=== PATIENT | female | born 1935 | race Caucasian/White ===

== ENCOUNTER → 2016-08-15 | Day surgery (SDC) | payer MEDICARE, BC, OTHER ==
[~2016-08-15] VITALS: Ht 157.5 cm; Wt 69.9 kg
[~2016-08-15] MED LIST: ACETAMINOPHEN 325 MG TAB PO PRN; ASPI1TAB PO; ATEN25TA PO; AcetaZOLAMIDE 500 MG ER CAP PO ONE; BREO1INH3 INH; BSS with VANC/TOB/EPI for EYE CASES IR ONE; CEFUROXIME 1MG/0.1ML INTRACAMERAL INJ As Ordered ONE; COMBAER6 INH; CYCLOPENTOLATE 2% OPHTH SOLN As Ordered ONE; CYCLOPENTOLATE 2% OPHTH SOLN OS ONE; HEALON DUET (HEALON 10MG/ML 0.55ML & HEALON ENDOCOAT 30MG/ML 0.85ML) As Ordered ONE; HYDR25TAB PO; K-TA10TA PO; KETOROLAC 0.5% OPHTH SOLN OS ONE; LIDOCAINE 1% SDV 5 ML VIAL As Ordered ONE; LIDOCAINE 4% INJ 5 ML AMP OU ONE; LIPI10TA PO; MAGN400C2 PO; MAVI4TAB PO; MECL-86 PO; METF500T PO; MIDAZOLAM INJ 2 MG/2 ML VIAL (J2250) As Ordered ONE; MULT1TAB15 PO; NITR4TASL SL; OFLOXACIN 0.3 % (OCUFLOX) OPTH SOL 5ML As Ordered ONE; OFLOXACIN 0.3 % (OCUFLOX) OPTH SOL 5ML OS ONE; PHENYLEPHRINE 2.5% OPHTH SOL 2ML As Ordered ONE; PHENYLEPHRINE 2.5% OPHTH SOL 2ML OS ONE; POVIDONE-IODINE 5% OPHTH PREP SOL 30ML As Ordered ONE; PRIL20CA9 PO; PROPARACAINE 0.5% OPHTH SOL 15ML OS PRN; SPIR25TA2 PO; TRIMETHOBENZAMIDE 300 MG CAP PO PRN; TROPICAMIDE 1% OPHTH SOLN 2 ML As Ordered ONE; TROPICAMIDE 1% OPHTH SOLN 2 ML OS ONE; fentaNYL 100 MCG/2 ML INJECTION (J3010) As Ordered ONE
[2016-08-15 10:00] VITALS: BP 139/74
== END | disposition home or self-care (01) ==
LOC: M SDC 07:15
PROVIDERS: ATTEND Ophthalmology
DX: H26.9 Unspecified cataract (principal); I25.10 Atherosclerotic heart disease of native coronary artery without angina pectoris; I25.2 Old myocardial infarction; I11.9 Hypertensive heart disease without heart failure; E78.4 Other hyperlipidemia; E11.21 Type 2 diabetes mellitus with diabetic nephropathy; E11.40 Type 2 diabetes mellitus with diabetic neuropathy, unspecified; K21.9 Gastro-esophageal reflux disease without esophagitis; R29.898 Other symptoms and signs involving the musculoskeletal system; M12.9 Arthropathy, unspecified; M54.5 Low back pain; R51 Headache; J44.9 Chronic obstructive pulmonary disease, unspecified; R06.02 Shortness of breath; R32 Unspecified urinary incontinence; Z88.5 Allergy status to narcotic agent; Z88.8 Allergy status to other drugs, medicaments and biological substances; Z79.899 Other long term (current) drug therapy; Z79.82 Long term (current) use of aspirin; Z95.0 Presence of cardiac pacemaker; Z95.5 Presence of coronary angioplasty implant and graft; Z90.710 Acquired absence of both cervix and uterus; Z87.891 Personal history of nicotine dependence
CPT/HCPCS: 66984; J2250; J3010; V2632

== ENCOUNTER → 2016-09-13 | Day surgery (SDC) | payer MEDICARE, BC, OTHER ==
[~2016-09-13] VITALS: Ht 157.5 cm; Wt 69.9 kg
[~2016-09-13] MED LIST changes: -CYCLOPENTOLATE 2% OPHTH SOLN As Ordered ONE; +CYCLOPENTOLATE 2% OPHTH SOLN OD ONE; -CYCLOPENTOLATE 2% OPHTH SOLN OS ONE; +KETOROLAC 0.5% OPHTH SOLN OD ONE; -KETOROLAC 0.5% OPHTH SOLN OS ONE; +MOXIFLOXACIN IN BSS 0.25MG/0.25ML INTRACAMERAL INJ (OR EYE ONLY)(J2280) As Ordered ONE; -OFLOXACIN 0.3 % (OCUFLOX) OPTH SOL 5ML As Ordered ONE; +OFLOXACIN 0.3 % (OCUFLOX) OPTH SOL 5ML OD ONE; -OFLOXACIN 0.3 % (OCUFLOX) OPTH SOL 5ML OS ONE; -PHENYLEPHRINE 2.5% OPHTH SOL 2ML As Ordered ONE; +PHENYLEPHRINE 2.5% OPHTH SOL 2ML OD ONE; -PHENYLEPHRINE 2.5% OPHTH SOL 2ML OS ONE; +PROPARACAINE 0.5% OPHTH SOL 15ML OD PRN; -PROPARACAINE 0.5% OPHTH SOL 15ML OS PRN; +TRIAMCINOLONE PRES FR 40 MG/ML 1ML(TRIESENCE)(OR EYE ONLY)(J3300 PER 1MG) As Ordered ONE; -TROPICAMIDE 1% OPHTH SOLN 2 ML As Ordered ONE; +TROPICAMIDE 1% OPHTH SOLN 2 ML OD ONE; -TROPICAMIDE 1% OPHTH SOLN 2 ML OS ONE
[2016-09-13 11:50] VITALS: BP 132/71
--- NOTE | 2016-09-13 12:41 | RO ---
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 PROCEDURE: Phacoemulsification with intraocular lens implantation of PCB00 plus 21.5 and also placement of the Malyugin ring 7 mm. SURGEON: Ventura Lopez MD ORDER CONTROL CLERK BLOOD BANK: None. COMPLICATIONS: None. ANESTHESIA: Local monitored anesthesia care (MAC). DESCRIPTION OF PROCEDURE: Procedure in detail: Patient was brought to the operating room, laid in supine position. The eye was prepped and draped in a sterile fashion for ophthalmic surgery, and a sideport incision was made and 1% preservative-free lidocaine was injected through the clear cornea. Viscoat was then injected through the sideport, and anterior chamber was entered with a 2.5 mm keratome temporally through clear cornea. A circular capsulorrhexis was made after the initial placement of the Malyugin ring to dilate the pupil. The nucleus was hydrodissected and then phacoemulsified within the capsular bag, and the cortex was removed with irrigation and aspiration cannula. The Viscoat was then injected into the capsular bag and the intraocular lens inserted in the bag. Viscoelastic was then removed. All the wounds were tested for leaks. No leaks were noted after the intraocular lens was in the bag. Moxifloxacin was then injected intracamerally, and Kenalog was given in the sub-Tenon fascia. Lid speculum was removed. Patient returned to the recovery room in stable condition after the Malyugin ring was removed. Edited: [facility] 09/15/2016 [id number]
== END | disposition home or self-care (01) ==
LOC: M SDC 09:00
PROVIDERS: ATTEND Ophthalmology
DX: H26.9 Unspecified cataract (principal); H57.03 Miosis; I11.9 Hypertensive heart disease without heart failure; J44.9 Chronic obstructive pulmonary disease, unspecified; I25.10 Atherosclerotic heart disease of native coronary artery without angina pectoris; E11.21 Type 2 diabetes mellitus with diabetic nephropathy; E11.40 Type 2 diabetes mellitus with diabetic neuropathy, unspecified; E78.4 Other hyperlipidemia; J98.01 Acute bronchospasm; I25.2 Old myocardial infarction; K21.9 Gastro-esophageal reflux disease without esophagitis; R29.898 Other symptoms and signs involving the musculoskeletal system; M12.9 Arthropathy, unspecified; R06.09 Other forms of dyspnea; R32 Unspecified urinary incontinence; R51 Headache; K57.30 Diverticulosis of large intestine without perforation or abscess without bleeding; Z88.5 Allergy status to narcotic agent; Z88.8 Allergy status to other drugs, medicaments and biological substances; Z79.899 Other long term (current) drug therapy; Z79.82 Long term (current) use of aspirin; Z95.5 Presence of coronary angioplasty implant and graft; Z95.0 Presence of cardiac pacemaker; Z90.710 Acquired absence of both cervix and uterus; Z87.891 Personal history of nicotine dependence
CPT/HCPCS: 66982; J2250; J2280; J3010; J3300; V2632

== ENCOUNTER → 2018-02-21 | Outpatient (REF) | payer MEDICARE, BC, OTHER ==
[2018-02-21 18:58] LABS: BASO % 0.4 % (0.0-1.0); EOS # 0.1 10^3/uL (0.0-0.50); EOS % 1.7 % (0.0-3.0); HEMATOCRIT 39.4 % (36.0-47.0); HEMOGLOBIN 12.8 g/dl (12.0-15.5); IMMATURE GRANULOCYTE % 0.2 % (0-3.0); LYMPH # 1.7 10^3/uL (1.5-4.5); LYMPH % 32.3 % (24.0-44.0); MEAN CORPUSCULAR HEMOGLOBIN 30.3 pg (27.0-33.0); MEAN CORPUSCULAR HGB CONC 32.5 g/dl (32.0-36.5); MEAN CORPUSCULAR VOLUME 93.1 fl (80.0-96.0); MONO # 0.5 10^3/uL (0.0-0.8); MONO % 8.4 % (0.0-5.0); NEUTROPHILS # 3.1 10^3/uL (1.8-7.7); PLATELET COUNT, AUTOMATED 258 10^3/uL (150-450); RED BLOOD COUNT 4.23 10^6/uL (4.00-5.40); RED CELL DISTRIBUTION WIDTH 13.3 % (11.5-14.5); WHITE BLOOD COUNT 5.4 10^3/uL (4.0-10.0)
[2018-02-21 19:22] LABS: ANION GAP 11 MEQ/L (8-16); BLOOD UREA NITROGEN 24 MG/DL (7-18); C REACTIVE PROTEIN QUANTITATIV < 0.30 MG/DL (0.00-0.30); CALCIUM LEVEL 10.4 MG/DL (8.8-10.2); CARBON DIOXIDE LEVEL 25 MEQ/L (21-32); CHLORIDE LEVEL 103 MEQ/L (98-107); CREATININE FOR GFR 1.29 MG/DL (0.55-1.30); GLOMERULAR FILTRATION RATE 42.2 (>32); GLUCOSE, FASTING 126 MG/DL (70-100); MAGNESIUM LEVEL 1.9 MG/DL (1.8-2.4); POTASSIUM SERUM 4.5 MEQ/L (3.5-5.1); SODIUM LEVEL 139 MEQ/L (136-145); THYROID STIMULATING HORMONE 0.863 uIU/ML (0.358-3.740)
[2018-02-21 20:00] LABS: ERYTHROCYTE SEDIMENTATION RATE 2 mm/hr (0-30)
[2018-02-21 21:07] LABS: ESTIMATED AVERAGE GLUCOSE 177 MG/DL (60-110); HEMOGLOBIN A1c 7.8 %
== END ==
LOC: M LAB REF 17:22
DX: R52 Pain, unspecified (principal); E11.65 Type 2 diabetes mellitus with hyperglycemia; I11.9 Hypertensive heart disease without heart failure; F32.0 Major depressive disorder, single episode, mild; M79.1 Myalgia; R06.00 Dyspnea, unspecified
CPT/HCPCS: 83735

== ENCOUNTER → 2020-07-10 | Outpatient (REF) | payer MEDICARE, OTHER ==
[~2020-07-10] MED LIST changes: -ACETAMINOPHEN 325 MG TAB PO PRN; -ASPI1TAB PO; +ASPI81TA26 PO; -AcetaZOLAMIDE 500 MG ER CAP PO ONE; -BSS with VANC/TOB/EPI for EYE CASES IR ONE; -CEFUROXIME 1MG/0.1ML INTRACAMERAL INJ As Ordered ONE; -CYCLOPENTOLATE 2% OPHTH SOLN OD ONE; -HEALON DUET (HEALON 10MG/ML 0.55ML & HEALON ENDOCOAT 30MG/ML 0.85ML) As Ordered ONE; +HYDR-3490 PO; -HYDR25TAB PO; -KETOROLAC 0.5% OPHTH SOLN OD ONE; -LIDOCAINE 1% SDV 5 ML VIAL As Ordered ONE; -LIDOCAINE 4% INJ 5 ML AMP OU ONE; -METF500T PO; +METF500T13 PO; -MIDAZOLAM INJ 2 MG/2 ML VIAL (J2250) As Ordered ONE; -MOXIFLOXACIN IN BSS 0.25MG/0.25ML INTRACAMERAL INJ (OR EYE ONLY)(J2280) As Ordered ONE; -OFLOXACIN 0.3 % (OCUFLOX) OPTH SOL 5ML OD ONE; -PHENYLEPHRINE 2.5% OPHTH SOL 2ML OD ONE; -POVIDONE-IODINE 5% OPHTH PREP SOL 30ML As Ordered ONE; -PROPARACAINE 0.5% OPHTH SOL 15ML OD PRN; +SPIR-10 PO; -SPIR25TA2 PO; -TRIAMCINOLONE PRES FR 40 MG/ML 1ML(TRIESENCE)(OR EYE ONLY)(J3300 PER 1MG) As Ordered ONE; -TRIMETHOBENZAMIDE 300 MG CAP PO PRN; -TROPICAMIDE 1% OPHTH SOLN 2 ML OD ONE; -fentaNYL 100 MCG/2 ML INJECTION (J3010) As Ordered ONE
[2020-07-10 15:55] LABS: BASO # 0.1 10^3/uL (0.0-0.2); BASO % 0.7 % (0.0-1.0); EOS # 0.1 10^3/uL (0.0-0.5); HEMATOCRIT 41.8 % (36.0-47.0); HEMOGLOBIN 13.5 g/dl (12.0-15.5); LYMPH % 28.5 % (24.0-44.0); MEAN CORPUSCULAR HEMOGLOBIN 30.9 pg (27.0-33.0); MEAN CORPUSCULAR HGB CONC 32.3 g/dl (32.0-36.5); MEAN CORPUSCULAR VOLUME 95.7 fl (80.0-96.0); MONO # 0.6 10^3/uL (0.0-0.8); NEUTROPHILS # 4.2 10^3/uL (1.5-8.5); NEUTROPHILS % 60.5 % (36.0-66.0); PLATELET COUNT, AUTOMATED 253 10^3/uL (150-450); RED BLOOD COUNT 4.37 10^6/uL (4.00-5.40)
[2020-07-10 16:03] LABS: ALBUMIN 4.2 GM/DL (3.2-5.2); BILIRUBIN,TOTAL 1.4 MG/DL (0.2-1.0); CALCIUM LEVEL 10.4 MG/DL (8.8-10.2); CREATININE FOR GFR 1.65 MG/DL (0.55-1.30); GLOMERULAR FILTRATION RATE 31.6 (>32); TOTAL PROTEIN 7.7 GM/DL (6.4-8.2)
== END ==
LOC: M LABDRAWC 15:29
PROVIDERS: ATTEND Internal Medicine Cardiovascular Disease
DX: I50.32 Chronic diastolic (congestive) heart failure (principal); I08.0 Rheumatic disorders of both mitral and aortic valves

== ENCOUNTER → 2020-07-21 | Outpatient (REF) | payer MEDICARE, OTHER ==
[2020-07-21 17:41] LABS: BASO # 0.1 10^3/uL (0.0-0.2); BASO % 0.6 % (0.0-1.0); EOS # 0.2 10^3/uL (0.0-0.5); EOS % 2.2 % (0.0-3.0); HEMATOCRIT 43.2 % (36.0-47.0); HEMOGLOBIN 13.9 g/dl (12.0-15.5); LYMPH % 24.5 % (24.0-44.0); MEAN CORPUSCULAR HEMOGLOBIN 31.2 pg (27.0-33.0); MEAN CORPUSCULAR HGB CONC 32.2 g/dl (32.0-36.5); MEAN CORPUSCULAR VOLUME 96.9 fl (80.0-96.0); MONO # 0.6 10^3/uL (0.0-0.8); MONO % 6.8 % (2.0-8.0); NEUTROPHILS # 5.4 10^3/uL (1.5-8.5); NEUTROPHILS % 65.5 % (36.0-66.0); PLATELET COUNT, AUTOMATED 272 10^3/uL (150-450); RED BLOOD COUNT 4.46 10^6/uL (4.00-5.40); WHITE BLOOD COUNT 8.2 10^3/uL (4.0-10.0)
[2020-07-21 18:14] LABS: HEMOGLOBIN A1c 6.5 %
[2020-07-21 18:17] LABS: C REACTIVE PROTEIN QUANTITATIV 0.3 MG/DL (0.00-0.30); CALCIUM LEVEL 10.4 MG/DL (8.8-10.2); CREATININE FOR GFR 1.51 MG/DL (0.55-1.30); POTASSIUM SERUM 4.9 MEQ/L (3.5-5.1); THYROID STIMULATING HORMONE 1.05 uIU/ML (0.358-3.740)
== END ==
LOC: M LABDRAWC 16:05
PROVIDERS: ATTEND Family Medicine
DX: I50.32 Chronic diastolic (congestive) heart failure (principal); J44.9 Chronic obstructive pulmonary disease, unspecified; E11.9 Type 2 diabetes mellitus without complications; I11.0 Hypertensive heart disease with heart failure; R53.81 Other malaise; R53.83 Other fatigue; M79.609 Pain in unspecified limb; N19 Unspecified kidney failure

== ENCOUNTER → 2020-07-21 | Outpatient (REF) | payer MEDICARE, OTHER ==
[2020-07-21 18:13] LABS: ALBUMIN 4.3 GM/DL (3.2-5.2); CALCIUM LEVEL 10.4 MG/DL (8.8-10.2); CREATININE FOR GFR 1.52 MG/DL (0.55-1.30); GLOMERULAR FILTRATION RATE 34.8 (>32); PHOSPHORUS LEVEL 3.5 MG/DL (2.5-4.9); POTASSIUM SERUM 4.7 MEQ/L (3.5-5.1)
== END ==
LOC: M LABDRAWC 16:03
PROVIDERS: ATTEND Internal Medicine Cardiovascular Disease
DX: I50.32 Chronic diastolic (congestive) heart failure (principal); N19 Unspecified kidney failure

== ENCOUNTER → 2021-02-10 | Outpatient (REF) | payer MEDICARE, OTHER | LOC: M SFHCCLAY 10:01 | PROVIDERS: ATTEND Physician Assistant | DX: R30.0 Dysuria (principal); N39.0 Urinary tract infection, site not specified; R31.9 Hematuria, unspecified | CPT/HCPCS: 81002; 87088; 87186; G0463 ==

== ENCOUNTER → 2021-02-24 | Outpatient (CLI) | payer MEDICARE, BC, OTHER | LOC: M LABSMTC 11:26 | PROVIDERS: ATTEND Pediatrics | DX: Z11.52 Encounter for screening for COVID-19 (principal); U07.1 COVID-19 | CPT/HCPCS: C9803; U0003 ==

== ENCOUNTER → 2021-03-18 | Outpatient (REF) | payer MEDICARE, OTHER ==
[2021-03-18 16:24] LABS: HEMATOCRIT 38.1 % (36.0-47.0); HEMOGLOBIN 12.2 g/dl (12.0-15.5); MEAN CORPUSCULAR HEMOGLOBIN 30.9 pg (27.0-33.0); MEAN CORPUSCULAR VOLUME 96.5 fl (80.0-96.0); PLATELET COUNT, AUTOMATED 270 10^3/uL (150-450); RED BLOOD COUNT 3.95 10^6/uL (4.00-5.40); WHITE BLOOD COUNT 7.1 10^3/uL (4.0-10.0)
[2021-03-18 16:54] LABS: BILIRUBIN,TOTAL 0.9 MG/DL (0.2-1.0); CALCIUM LEVEL 10.1 MG/DL (8.8-10.2); CREATININE FOR GFR 1.28 MG/DL (0.55-1.30); GLOMERULAR FILTRATION RATE 42.3 (>32)
[2021-03-18 16:55] LABS: ALBUMIN 3.6 GM/DL (3.2-5.2); CHOLESTEROL RISK RATIO 3.974 (<5); TOTAL PROTEIN 7.2 GM/DL (6.4-8.2)
[2021-03-18 19:45] LABS: HEMOGLOBIN A1c 6.7 %
== END ==
LOC: M SFHCCLAY 09:39
PROVIDERS: ATTEND Family Medicine
DX: I50.32 Chronic diastolic (congestive) heart failure (principal); E11.9 Type 2 diabetes mellitus without complications

== ENCOUNTER → 2021-08-05 | Outpatient (REF) | payer MEDICARE, OTHER ==
[2021-08-06 12:19] LABS: CALCIUM LEVEL 10.5 MG/DL (8.8-10.2); CREATININE FOR GFR 1.63 MG/DL (0.55-1.30); POTASSIUM SERUM 5.8 MEQ/L (3.5-5.1)
[2021-08-06 12:24] LABS: MALB URINE SIEMENS 16.4 MG/L; MAU/CREAT RATIO 9.6 MCG/MG (0.0-30.0)
[2021-08-06 12:31] LABS: HEMOGLOBIN A1c 6.9 %
== END ==
LOC: M SFHCCLAY 14:14
PROVIDERS: ATTEND Family Medicine
DX: N18.32 Chronic kidney disease, stage 3b (principal); E11.9 Type 2 diabetes mellitus without complications

== ENCOUNTER → 2021-08-11 | Outpatient (REF) | payer MEDICARE, OTHER | LOC: M SFHCCLAY 09:20 | PROVIDERS: ATTEND Family Medicine | DX: E87.5 Hyperkalemia (principal) ==

== ENCOUNTER → 2021-12-06 | Outpatient (REF) | payer MEDICARE, OTHER ==
[2021-12-06 16:47] LABS: HEMATOCRIT 41.6 % (36.0-47.0); HEMOGLOBIN 13.5 g/dl (12.0-15.5); MEAN CORPUSCULAR HGB CONC 32.5 g/dl (32.0-36.5); MEAN CORPUSCULAR VOLUME 98.6 fl (80.0-96.0); PLATELET COUNT, AUTOMATED 218 10^3/uL (150-450); RED BLOOD COUNT 4.22 10^6/uL (4.00-5.40); WHITE BLOOD COUNT 6.5 10^3/uL (4.0-10.0)
[2021-12-07 00:09] LABS: CALCIUM LEVEL 10.5 MG/DL (8.8-10.2); CREATININE FOR GFR 1.41 MG/DL (0.55-1.30); FREE T4 0.9 NG/DL (0.76-1.46); GLOMERULAR FILTRATION RATE 37.7 (>32); POTASSIUM SERUM 5.1 MEQ/L (3.5-5.1); THYROID STIMULATING HORMONE 0.977 uIU/ML (0.358-3.740)
[2021-12-07 01:12] LABS: HEMOGLOBIN A1c 6.6 %
== END ==
LOC: M SFHCCLAY 10:23
PROVIDERS: ATTEND Family Medicine
DX: R53.82 Chronic fatigue, unspecified (principal); E11.9 Type 2 diabetes mellitus without complications

== ENCOUNTER → 2022-05-25 | Outpatient (REF) | payer MEDICARE, OTHER | LOC: M SFHCCLAY 11:51 | PROVIDERS: ATTEND Family Medicine | DX: R35.0 Frequency of micturition (principal) ==

== ENCOUNTER → 2022-08-02 | Outpatient (REF) | payer MEDICARE, OTHER ==
[2022-08-02 18:23] LABS: CALCIUM LEVEL 9.9 MG/DL (8.3-10.6); CHOLESTEROL RISK RATIO 4.02 (<5); CREATININE FOR GFR 1.26 MG/DL (0.55-1.30); HDL CHOLESTEROL 41.7 MG/DL (>40); LDL CHOLESTEROL 46.9 MG/DL (<100); POTASSIUM SERUM 5.1 MMOL/L (3.5-5.1)
[2022-08-02 18:38] LABS: HEMOGLOBIN A1c 6.5 % (4.0-6.0)
== END ==
LOC: M SFHCCLAY 11:06
PROVIDERS: ATTEND Nurse Practitioner Family
DX: I11.0 Hypertensive heart disease with heart failure (principal); E11.9 Type 2 diabetes mellitus without complications; I50.32 Chronic diastolic (congestive) heart failure; I25.10 Atherosclerotic heart disease of native coronary artery without angina pectoris; N18.32 Chronic kidney disease, stage 3b; J44.9 Chronic obstructive pulmonary disease, unspecified; M25.561 Pain in right knee

== ENCOUNTER → 2022-08-05 | Outpatient (REF) | payer MEDICARE, OTHER | LOC: M SFHCCLAY 10:48 | PROVIDERS: ATTEND Nurse Practitioner Family | DX: N89.8 Other specified noninflammatory disorders of vagina (principal) ==

== ENCOUNTER → 2022-08-31 | Outpatient (REF) | payer MEDICARE, OTHER | LOC: M SFHCCLAY 16:58 | PROVIDERS: ATTEND Nurse Practitioner Family | DX: N89.8 Other specified noninflammatory disorders of vagina (principal); Z79.899 Other long term (current) drug therapy ==

== ENCOUNTER 2022-09-13 22:22 | Inpatient (IN) | payer MEDICARE, BC, OTHER ==
[~2022-09-13] VITALS: Ht 157.5 cm; Wt 71.5 kg
[~2022-09-13 22:22] MED LIST changes: -ACET-897 PO; -ADVA230A INH; -ALBU8.5H INH; -ARTIDRO4 OU; -ASPI-161 PO; -FLUC150T9 PO; -GLIM2TAB4 PO; -HYDR12.55 PO; -MAGN400T2 PO; -MECL25CH45 PO; -OMEP-173 PO; -TRAN1TAB56 PO; -TRIA1CR80 TOP; -VITMTA PO
[2022-09-13 23:13] LABS: BASO % 0.3 % (0.0-1.0); EOS # 0.1 10^3/uL (0.0-0.5); EOS % 1.8 % (0.0-3.0); HEMATOCRIT 38.9 % (36.0-47.0); HEMOGLOBIN 13.1 g/dl (12.0-15.5); LYMPH # 2.8 10^3/uL (1.5-5.0); MEAN CORPUSCULAR HEMOGLOBIN 32.6 pg (27.0-33.0); MEAN CORPUSCULAR HGB CONC 33.7 g/dl (32.0-36.5); MEAN CORPUSCULAR VOLUME 96.8 fl (80.0-96.0); MONO # 0.6 10^3/uL (0.0-0.8); MONO % 7.9 % (2.0-8.0); NEUTROPHILS # 4.2 10^3/uL (1.5-8.5); NEUTROPHILS % 53.6 % (36.0-66.0); PLATELET COUNT, AUTOMATED 274 10^3/uL (150-450); RED BLOOD COUNT 4.02 10^6/uL (4.00-5.40); WHITE BLOOD COUNT 7.7 10^3/uL (4.0-10.0)
[2022-09-13 23:39] LABS: RSV AMPLIFICATION NEGATIVE (NEGATIVE)
[2022-09-13 23:47] LABS: CALCIUM LEVEL 9.9 MG/DL (8.3-10.6); CREATININE FOR GFR 1.98 MG/DL (0.55-1.30); GLOMERULAR FILTRATION RATE 25.5 (>32); POTASSIUM SERUM 6.7 MMOL/L (3.5-5.1); THYROID STIMULATING HORMONE 2.834 uIU/ML (0.55-4.78)
[2022-09-14] VITALS (9 sets, daily range): BP systolic 112–127; BP diastolic 59–68; O2SAT 95–96
[2022-09-14] MEDS ORDERED: DEXTROSE 50% 50ML SYRINGE IV ONE
[2022-09-14] MEDS ORDERED: HumuLIN R (REGULAR) INSULIN (NovoLIN R) **100U/ML** PER UNIT IV ONE
[2022-09-14] MEDS ORDERED: CALCIUM GLUCONATE 1,000MG/10ML VIAL (100MG/ML) IV ONE
[2022-09-14] MEDS ORDERED: GLUCAGON INJ 1MG VIAL SC PRN (00:45)
[2022-09-14] MEDS ORDERED: NS 1,000 ML IV SCH (00:45)
[2022-09-14] MEDS ORDERED: GLUCOSE 4GM CHEW TABLET PO PRN (00:45)
[2022-09-14] MEDS ORDERED: DEXTROSE 50% 50ML SYRINGE IV PRN (00:45)
[2022-09-14] MEDS ORDERED: PATIROMER SORBITEX CALCIUM 8.4 GM POWDER PACKET (VELTASSA) PO ONE (01:00)
[2022-09-14 01:24] LABS: VENOUS HCO3 17.1 MEQ/L (23.0-27.0); VENOUS O2 SATURATION 69.9 % (60.0-80.0); VENOUS PARTIAL PRESSURE O2 41.7 mmHg (30.0-50.0); VENOUS PH 7.228 UNITS (7.330-7.430); VENOUS STANDARD HCO3 16.1 MEQ/L; VENOUS TOTAL CO2 18.4 MEQ/L (24.0-28.0)
[2022-09-14 01:43] LABS: HEMOGLOBIN A1c 6.5 % (4.0-6.0)
[2022-09-14 02:45] LABS: VENOUS BASE EXCESS -8.9 (-2.0-2.0); VENOUS HCO3 17.4 MEQ/L (23.0-27.0); VENOUS O2 SATURATION 70.7 % (60.0-80.0); VENOUS PARTIAL PRESSURE CO2 39.3 mmHg (38.0-50.0); VENOUS PARTIAL PRESSURE O2 40.1 mmHg (30.0-50.0); VENOUS PH 7.265 UNITS (7.330-7.430); VENOUS STANDARD HCO3 16.8 MEQ/L; VENOUS TOTAL CO2 18.6 MEQ/L (24.0-28.0)
[2022-09-14] MEDS: hydrALAZINE 20MG/ML 1ML VIAL IV ONE ×2 (02:49→05:25)
[2022-09-14] MEDS ORDERED: DEXTROSE 50% 50ML SYRINGE IV STA (03:48)
[2022-09-14] MEDS ORDERED: HumuLIN R (REGULAR) INSULIN (NovoLIN R) **100U/ML** PER UNIT IV STA (03:48)
[2022-09-14 03:50] LABS: CALCIUM LEVEL 10.5 MG/DL (8.3-10.6); CREATININE FOR GFR 1.96 MG/DL (0.55-1.30); GLOMERULAR FILTRATION RATE 25.8 (>32); POTASSIUM SERUM 6.9 MMOL/L (3.5-5.1)
[2022-09-14] MEDS: SODIUM BICARBONATE 150 MEQ in STERILE WATER LITER BAG 1,000 ML IV SCH ×2 (04:42→17:10)
[2022-09-14] MEDS ORDERED: ALBUTEROL SULFATE 2.5MG/0.5ML INH NEB SOLN NEB ONE (05:00)
[2022-09-14] MEDS ORDERED: SOD POLYSTYRENE SULFONATE SUSP 15GM 60ML UD PO ONE (05:00)
[2022-09-14] MEDS ORDERED: ONDANSETRON 4MG 2ML VIAL As Ordered ONE (05:07)
[2022-09-14] MEDS ORDERED: OMEP-173 PO (05:19)
[2022-09-14] MEDS ORDERED: MECL25CH45 PO (05:19)
[2022-09-14] MEDS ORDERED: VITMTA PO (05:19)
[2022-09-14] MEDS ORDERED: TRAN1TAB56 PO (05:19)
[2022-09-14] MEDS ORDERED: ARTIDRO4 OU (05:19)
[2022-09-14] MEDS ORDERED: HYDR12.55 PO (05:19)
[2022-09-14] MEDS ORDERED: TRIA1CR80 TOP (05:19)
[2022-09-14] MEDS ORDERED: ALBU8.5H INH (05:19)
[2022-09-14] MEDS ORDERED: ACET-897 PO (05:19)
[2022-09-14] MEDS ORDERED: MAGN400T2 PO (05:19)
[2022-09-14] MEDS ORDERED: FLUC150T9 PO (05:19)
[2022-09-14] MEDS ORDERED: ASPI-161 PO (05:19)
[2022-09-14] MEDS ORDERED: GLIM2TAB4 PO (05:19)
[2022-09-14] MEDS ORDERED: ADVA230A INH (05:19)
[2022-09-14] MEDS ORDERED: HOME MED LIST COMPLETE! XX SCH (05:20)
[2022-09-14] MEDS: HEPARIN SOD (PORCINE) 5000UNITS/ML 1ML VIAL/SYRINGE SC SCH ×3 (05:59→21:04)
[2022-09-14 06:44] LABS: VENOUS PARTIAL PRESSURE CO2 30.9 mmHg (38.0-50.0); VENOUS PH 7.318 UNITS (7.330-7.430); VENOUS TOTAL CO2 16.4 MEQ/L (24.0-28.0)
[2022-09-14 06:45] LABS: HEMATOCRIT 40.7 % (36.0-47.0); HEMOGLOBIN 13.3 g/dl (12.0-15.5); MEAN CORPUSCULAR HEMOGLOBIN 32.4 pg (27.0-33.0); MEAN CORPUSCULAR HGB CONC 32.7 g/dl (32.0-36.5); PLATELET COUNT, AUTOMATED 293 10^3/uL (150-450); RED BLOOD COUNT 4.11 10^6/uL (4.00-5.40); VENOUS BASE EXCESS -9.3 (-2.0-2.0); VENOUS HCO3 15.5 MEQ/L (23.0-27.0); VENOUS STANDARD HCO3 17.1 MEQ/L; WHITE BLOOD COUNT 10.7 10^3/uL (4.0-10.0)
[2022-09-14 07:08] LABS: CALCIUM LEVEL 10.8 MG/DL (8.3-10.6); CREATININE FOR GFR 1.95 MG/DL (0.55-1.30); POTASSIUM SERUM 5.9 MMOL/L (3.5-5.1)
[2022-09-14] MEDS: OMEPRAZOLE 20MG CAP PO SCH (08:42)
[2022-09-14] MEDS: ASPIRIN 81MG ENTERIC TABLET PO SCH (08:42)
[2022-09-14] MEDS: atenoloL 25 MG TAB PO SCH (08:42)
[2022-09-14] MEDS: ADVAIR HFA 230/21MCG INHALER INH SCH (09:53)
[2022-09-14 11:01] LABS: CALCIUM LEVEL 10.3 MG/DL (8.3-10.6); CREATININE FOR GFR 1.85 MG/DL (0.55-1.30); GLOMERULAR FILTRATION RATE 27.6 (>32); POTASSIUM SERUM 5.9 MMOL/L (3.5-5.1)
[2022-09-14] MEDS ORDERED: PATIROMER SORBITEX CALCIUM 8.4 GM POWDER PACKET (VELTASSA) PO SCH (12:20)
[2022-09-14] MEDS ORDERED: FLUCONAZOLE 50MG TABLET PO ONE (15:00)
[2022-09-14] MEDS: ACETAMINOPHEN TAB 650MG DOSE (2X325MG) PO PRN (19:38)
[2022-09-14] MEDS ORDERED: ATORVASTATIN 10 MG TAB PO SCH (21:00)
[2022-09-15] VITALS (13 sets, daily range): BP systolic 112–121; BP diastolic 56–64; O2SAT 91–99
[2022-09-15] MEDS: SODIUM BICARBONATE 150 MEQ in STERILE WATER LITER BAG 1,000 ML IV SCH (03:09)
[2022-09-15] MEDS: HEPARIN SOD (PORCINE) 5000UNITS/ML 1ML VIAL/SYRINGE SC SCH (05:18)
[2022-09-15] MEDS: ACETAMINOPHEN TAB 650MG DOSE (2X325MG) PO PRN (05:28)
[2022-09-15] MEDS: ADVAIR HFA 230/21MCG INHALER INH SCH (07:47)
[2022-09-15 08:31] LABS: BASO % 0.4 % (0.0-1.0); EOS # 0.1 10^3/uL (0.0-0.5); EOS % 1.5 % (0.0-3.0); HEMATOCRIT 32.8 % (36.0-47.0); LYMPH # 1.5 10^3/uL (1.5-5.0); LYMPH % 28.5 % (24.0-44.0); MEAN CORPUSCULAR HEMOGLOBIN 32.4 pg (27.0-33.0); MEAN CORPUSCULAR HGB CONC 33.8 g/dl (32.0-36.5); MEAN CORPUSCULAR VOLUME 95.6 fl (80.0-96.0); MONO # 0.4 10^3/uL (0.0-0.8); MONO % 8.2 % (2.0-8.0); NEUTROPHILS # 3.3 10^3/uL (1.5-8.5); NEUTROPHILS % 61.2 % (36.0-66.0); PLATELET COUNT, AUTOMATED 201 10^3/uL (150-450); RED BLOOD COUNT 3.43 10^6/uL (4.00-5.40); WHITE BLOOD COUNT 5.4 10^3/uL (4.0-10.0)
[2022-09-15 09:05] LABS: CALCIUM LEVEL 8.6 MG/DL (8.3-10.6); CREATININE FOR GFR 1.53 MG/DL (0.55-1.30); GLOMERULAR FILTRATION RATE 34.3 (>32); POTASSIUM SERUM 4.3 MMOL/L (3.5-5.1)
[2022-09-15 09:09] LABS: HEMOGLOBIN 11.1 g/dl (12.0-15.5)
[2022-09-15] MEDS: atenoloL 25 MG TAB PO SCH (09:52)
[2022-09-15] MEDS: OMEPRAZOLE 20MG CAP PO SCH (09:52)
[2022-09-15] MEDS: ASPIRIN 81MG ENTERIC TABLET PO SCH (09:52)
== END 2022-09-15 13:38 | disposition home or self-care (01) | DRG 641 ==
LOC: EDBD 22:22 → M ED 22:22 → M ED INP 09-14 00:42 → ENRESERV 09-14 14:32 → M PCU 09-14 16:31
PROVIDERS: ADMIT Family Medicine; ATTEND Internal Medicine Nephrology
DX: E87.5 Hyperkalemia (principal); N17.9 Acute kidney failure, unspecified; I13.0 Hypertensive heart and chronic kidney disease with heart failure and stage 1 through stage 4 chronic kidney disease, or unspecified chronic kidney disease; I50.32 Chronic diastolic (congestive) heart failure; K21.9 Gastro-esophageal reflux disease without esophagitis; D64.9 Anemia, unspecified; J44.9 Chronic obstructive pulmonary disease, unspecified; E87.20 Acidosis, unspecified; N18.30 Chronic kidney disease, stage 3 unspecified; I25.10 Atherosclerotic heart disease of native coronary artery without angina pectoris; R73.03 Prediabetes; E83.52 Hypercalcemia; Z79.82 Long term (current) use of aspirin; Z79.84 Long term (current) use of oral hypoglycemic drugs; Z79.899 Other long term (current) drug therapy; Z88.2 Allergy status to sulfonamides; Z88.5 Allergy status to narcotic agent; Z88.8 Allergy status to other drugs, medicaments and biological substances

== ENCOUNTER → 2022-09-13 | Outpatient (REF) | payer MEDICARE, OTHER ==
[~2022-09-13] MED LIST changes: +ACET-897 PO; +ADVA230A INH; +ALBU8.5H INH; +ARTIDRO4 OU; +ASPI-161 PO; +FLUC150T9 PO; +GLIM2TAB4 PO; +HYDR12.55 PO; +MAGN400T2 PO; +MECL25CH45 PO; +OMEP-173 PO; +TRAN1TAB56 PO; +TRIA1CR80 TOP; +VITMTA PO
[2022-09-13 18:29] LABS: CALCIUM LEVEL 10.4 MG/DL (8.3-10.6); CREATININE FOR GFR 1.95 MG/DL (0.55-1.30); POTASSIUM SERUM 7.1 MMOL/L (3.5-5.1)
== END ==
LOC: M SFHCCLAY 11:26
PROVIDERS: ATTEND Nurse Practitioner Family
DX: R89.5 Abnormal microbiological findings in specimens from other organs, systems and tissues (principal)

== ENCOUNTER → 2022-09-27 | Outpatient (REF) | payer MEDICARE, OTHER ==
[~2022-09-27] MED LIST changes: +ACET-897 PO; +ADVA230A INH; +ALBU8.5H INH; +ARTIDRO4 OU; +ASPI-161 PO; +FLUC150T9 PO; +GLIM2TAB4 PO; +HYDR12.55 PO; +MAGN400T2 PO; +MECL25CH45 PO; +OMEP-173 PO; +TRAN1TAB56 PO; +TRIA1CR80 TOP; +VITMTA PO
[2022-09-27 18:07] LABS: BASO % 0.6 % (0.0-1.0); EOS # 0.2 10^3/uL (0.0-0.5); EOS % 2.4 % (0.0-3.0); HEMATOCRIT 36.8 % (36.0-47.0); HEMOGLOBIN 12.1 g/dl (12.0-15.5); LYMPH # 1.6 10^3/uL (1.5-5.0); LYMPH % 26.2 % (24.0-44.0); MEAN CORPUSCULAR HEMOGLOBIN 32.4 pg (27.0-33.0); MEAN CORPUSCULAR HGB CONC 32.9 g/dl (32.0-36.5); MEAN CORPUSCULAR VOLUME 98.4 fl (80.0-96.0); MONO # 0.5 10^3/uL (0.0-0.8); MONO % 8.5 % (2.0-8.0); NEUTROPHILS # 3.9 10^3/uL (1.5-8.5); NEUTROPHILS % 61.8 % (36.0-66.0); PLATELET COUNT, AUTOMATED 277 10^3/uL (150-450); RED BLOOD COUNT 3.74 10^6/uL (4.00-5.40); WHITE BLOOD COUNT 6.3 10^3/uL (4.0-10.0)
[2022-09-27 18:22] LABS: CALCIUM LEVEL 9.2 MG/DL (8.3-10.6); CREATININE FOR GFR 1.24 MG/DL (0.55-1.30); GLOMERULAR FILTRATION RATE 43.8 (>32); POTASSIUM SERUM 3.9 MMOL/L (3.5-5.1)
== END ==
LOC: M SFHCCLAY 14:48
PROVIDERS: ATTEND Nurse Practitioner Family
DX: N17.9 Acute kidney failure, unspecified (principal)

== ENCOUNTER → 2022-10-05 | Outpatient (REF) | payer MEDICARE, OTHER | LOC: M SFHCCLAY 15:30 | PROVIDERS: ATTEND Nurse Practitioner Family | DX: R10.2 Pelvic and perineal pain (principal) ==

== ENCOUNTER → 2022-10-06 | Outpatient (REF) | payer MEDICARE, OTHER ==
[2022-10-06 12:22] LABS: CALCIUM LEVEL 9.6 MG/DL (8.3-10.6); CREATININE FOR GFR 1.06 MG/DL (0.55-1.30); GLOMERULAR FILTRATION RATE 52.4 (>32); POTASSIUM SERUM 3.9 MMOL/L (3.5-5.1)
== END ==
LOC: M SFHCCLAY 07:59
PROVIDERS: ATTEND Nurse Practitioner Family
DX: R10.2 Pelvic and perineal pain (principal)

== ENCOUNTER 2022-10-25 10:54 | Inpatient (IN) | payer MEDICARE, BC, OTHER ==
[~2022-10-25] VITALS: Ht 157.5 cm; Wt 71.7 kg
[2022-10-25 11:51] LABS: BASO % 0.6 % (0.0-1.0); EOS # 0.1 10^3/uL (0.0-0.5); EOS % 1.9 % (0.0-3.0); HEMATOCRIT 36.6 % (36.0-47.0); HEMOGLOBIN 12.2 g/dl (12.0-15.5); LYMPH # 1.4 10^3/uL (1.5-5.0); LYMPH % 22.5 % (24.0-44.0); MEAN CORPUSCULAR HEMOGLOBIN 31.8 pg (27.0-33.0); MEAN CORPUSCULAR HGB CONC 33.3 g/dl (32.0-36.5); MEAN CORPUSCULAR VOLUME 95.3 fl (80.0-96.0); MONO # 0.4 10^3/uL (0.0-0.8); NEUTROPHILS # 4.3 10^3/uL (1.5-8.5); NEUTROPHILS % 68.7 % (36.0-66.0); PLATELET COUNT, AUTOMATED 240 10^3/uL (150-450); RED BLOOD COUNT 3.84 10^6/uL (4.00-5.40); WHITE BLOOD COUNT 6.3 10^3/uL (4.0-10.0)
[2022-10-25 12:06] LABS: INR 0.92; PROTHROMBIN TIME 12.6 SECONDS (12.5-14.5)
[2022-10-25 12:07] LABS: PARTIAL THROMBOPLASTIN TIME 25.2 SECONDS (24.8-34.2)
[2022-10-25 12:17] LABS: ALBUMIN 3.7 G/DL (3.2-5.2); BILIRUBIN,DIRECT 0.2 MG/DL (<0.4); CK-MB VALUE MASS 1.4 NG/ML (<3.6); MB/CK RELATIVE INDEX 1.16 (< OR =4); TOTAL PROTEIN 6.4 G/DL (5.7-8.2)
[2022-10-25 12:21] LABS: RSV AMPLIFICATION NEGATIVE (NEGATIVE)
[2022-10-25] MEDS ORDERED: HOME MED LIST COMPLETE! XX SCH (15:30)
[2022-10-25] MEDS ORDERED: ALBUTEROL 90 MCG/ACT 8GM HFA INHALER INH PRN (16:20)
[2022-10-25] MEDS ORDERED: hydrALAZINE 20MG/ML 1ML VIAL IV PRN (16:25)
[2022-10-25] MEDS ORDERED: PILL CUTTER 1 EACH XX PRN (16:35)
[2022-10-25 17:04] VITALS: BP 157/76; TEMP 97.6; O2SAT 97
[2022-10-25 20:00] VITALS: BP 154/73; TEMP 97.3; O2SAT 98
[2022-10-25] MEDS: MAGNESIUM OXIDE 400MG TAB (MAG-OX) PO SCH (20:58)
[2022-10-25] MEDS: trandolapriL 1 MG TAB PO SCH (20:58)
[2022-10-25] MEDS: ATORVASTATIN 10 MG TAB PO SCH (20:58)
[2022-10-25] MEDS: TRIAMCINOLONE ACET 0.1% CREAM 15GM TOP SCH (20:58)
[2022-10-25 23:28] VITALS: BP 156/78; TEMP 97.8; O2SAT 97
[2022-10-25] MEDS: ACETAMINOPHEN 500 MG TAB PO PRN (23:54)
[2022-10-26] VITALS (7 sets, daily range): BP systolic 117–158; BP diastolic 60–81; TEMP 97.5–98.9; O2SAT 94–96
[2022-10-26 05:59] LABS: HEMATOCRIT 34.3 % (36.0-47.0); HEMOGLOBIN 11.3 g/dl (12.0-15.5); MEAN CORPUSCULAR HEMOGLOBIN 31.7 pg (27.0-33.0); MEAN CORPUSCULAR HGB CONC 32.9 g/dl (32.0-36.5); MEAN CORPUSCULAR VOLUME 96.3 fl (80.0-96.0); PLATELET COUNT, AUTOMATED 214 10^3/uL (150-450); RED BLOOD COUNT 3.56 10^6/uL (4.00-5.40); WHITE BLOOD COUNT 5.5 10^3/uL (4.0-10.0)
[2022-10-26 06:16] LABS: CALCIUM LEVEL 8.9 MG/DL (8.3-10.6); CREATININE FOR GFR 1.08 MG/DL (0.55-1.30); GLOMERULAR FILTRATION RATE 51.3 (>32); MAGNESIUM LEVEL 1.3 MG/DL (1.8-2.4); POTASSIUM SERUM 3.6 MMOL/L (3.5-5.1)
[2022-10-26] MEDS: MAG SULF 1GM/100ML (MAG RUN) 1 GM in IV 1 EA IV SCH ×4 (06:35→11:36)
[2022-10-26] MEDS ORDERED: ADVAIR HFA 230/21MCG INHALER INH SCH (08:00)
[2022-10-26] MEDS: hydroCHLOROthiazide 12.5 MG CAPSULE PO SCH (08:49)
[2022-10-26] MEDS: TRIAMCINOLONE ACET 0.1% CREAM 15GM TOP SCH ×2 (08:49→21:00)
[2022-10-26] MEDS: ASPIRIN 81MG ENTERIC TABLET PO SCH (08:50)
[2022-10-26] MEDS: OMEPRAZOLE 20MG CAP PO SCH (08:50)
[2022-10-26] MEDS: GLIMEPIRIDE 2 MG TAB PO SCH (08:51)
[2022-10-26] MEDS: MAGNESIUM OXIDE 400MG TAB (MAG-OX) PO SCH ×2 (08:51→15:01)
[2022-10-26] MEDS: ACETAMINOPHEN 500 MG TAB PO PRN (08:51)
[2022-10-26] MEDS ORDERED: MAG SULF 1GM/100ML (MAG RUN) 1 GM in IV 1 EA IV ONE (09:00)
[2022-10-26] MEDS: ACETAMINOPHEN TAB 650MG DOSE (2X325MG) PO PRN (15:45)
[2022-10-26] MEDS ORDERED: PILL CUTTER 1 EACH XX PRN (17:10)
[2022-10-26] MEDS: ADVAIR HFA 230/21MCG INHALER INH SCH (20:42)
[2022-10-26] MEDS: ATORVASTATIN 10 MG TAB PO SCH (20:59)
[2022-10-26] MEDS: trandolapriL 1 MG TAB PO SCH (20:59)
[2022-10-27] VITALS (10 sets, daily range): BP systolic 115–160; BP diastolic 60–71; TEMP 97–98.3; O2SAT 89–97
[2022-10-27] MEDS: traMADol 50 MG TAB PO PRN ×2 (04:26→21:06)
[2022-10-27 04:50] LABS: HEMATOCRIT 30.9 % (36.0-47.0); HEMOGLOBIN 10.4 g/dl (12.0-15.5); MEAN CORPUSCULAR HEMOGLOBIN 32.1 pg (27.0-33.0); MEAN CORPUSCULAR HGB CONC 33.7 g/dl (32.0-36.5); MEAN CORPUSCULAR VOLUME 95.4 fl (80.0-96.0); PLATELET COUNT, AUTOMATED 209 10^3/uL (150-450); RED BLOOD COUNT 3.24 10^6/uL (4.00-5.40); WHITE BLOOD COUNT 6.2 10^3/uL (4.0-10.0)
[2022-10-27 05:25] LABS: CALCIUM LEVEL 9.1 MG/DL (8.3-10.6); CREATININE FOR GFR 1.15 MG/DL (0.55-1.30); GLOMERULAR FILTRATION RATE 47.7 (>32); MAGNESIUM LEVEL 1.7 MG/DL (1.8-2.4); POTASSIUM SERUM 3.6 MMOL/L (3.5-5.1)
[2022-10-27] MEDS: ADVAIR HFA 230/21MCG INHALER INH SCH ×2 (07:36→19:33)
[2022-10-27] MEDS ORDERED: MOM 30ML SUSPENSION UDC PO PRN (07:45)
[2022-10-27] MEDS: MAGNESIUM OXIDE 400MG TAB (MAG-OX) PO SCH ×3 (08:13→21:05)
[2022-10-27] MEDS: GLIMEPIRIDE 2 MG TAB PO SCH (08:14)
[2022-10-27] MEDS: hydroCHLOROthiazide 12.5 MG CAPSULE PO SCH (08:14)
[2022-10-27] MEDS: ACETAMINOPHEN TAB 650MG DOSE (2X325MG) PO PRN ×3 (08:15→22:14)
[2022-10-27] MEDS ORDERED: GLUCOSE 4GM CHEW TABLET PO PRN (08:20)
[2022-10-27] MEDS ORDERED: GLUCAGON INJ 1MG VIAL SC PRN (08:20)
[2022-10-27] MEDS ORDERED: DEXTROSE 50% 50ML SYRINGE IV PRN (08:20)
[2022-10-27] MEDS: OMEPRAZOLE 20MG CAP PO SCH ×2 (09:00→16:58)
[2022-10-27] MEDS: SENOKOT S TAB PO SCH ×2 (09:00→21:06)
[2022-10-27] MEDS: ASPIRIN 81MG ENTERIC TABLET PO SCH (09:00)
[2022-10-27] MEDS: TRIAMCINOLONE ACET 0.1% CREAM 15GM TOP SCH ×2 (09:18→21:07)
[2022-10-27] MEDS ORDERED: fentaNYL 100 MCG/2 ML INJECTION As Ordered ONE (12:42)
[2022-10-27] MEDS ORDERED: ROCURONIUM BROMIDE 50MG/5ML VIAL As Ordered ONE (12:43)
[2022-10-27] MEDS ORDERED: propofoL 200 MG/20 ML VIAL As Ordered ONE (12:43)
[2022-10-27] MEDS ORDERED: LIDOCAINE 2% 100MG/5ML SDV (FOR ANES.) As Ordered ONE (12:43)
[2022-10-27] MEDS ORDERED: MIDAZOLAM INJ 2MG/2ML VIAL As Ordered ONE (12:43)
[2022-10-27] MEDS ORDERED: ONDANSETRON 4MG 2ML VIAL As Ordered ONE (12:47)
[2022-10-27] MEDS ORDERED: ISOVUE-300 61% 100ML VIAL As Ordered ONE (13:03)
[2022-10-27] MEDS ORDERED: ceFAZolin 2 GM/D5W 50 ML IV BAG As Ordered ONE (13:36)
[2022-10-27] MEDS ORDERED: LABETALOL 100MG/20ML VIAL As Ordered ONE (13:42)
[2022-10-27] MEDS ORDERED: ACETAMINOPHEN 1000MG 100ML IV BAG As Ordered ONE (13:46)
[2022-10-27] MEDS ORDERED: SUGAMMADEX SODIUM 500 MG/5 ML VIAL (BRIDION) As Ordered ONE (13:46)
[2022-10-27] MEDS ORDERED: ONDANSETRON 4MG 2ML VIAL IV PRN (14:15)
[2022-10-27] MEDS ORDERED: INSULIN LISPRO (NovoLOG) PER UNIT SC PRN (14:15)
[2022-10-27] MEDS ORDERED: fentaNYL 100 MCG/2 ML INJECTION IV PRN (14:15)
[2022-10-27] MEDS ORDERED: LR 1,000 ML IV SCH (14:15)
[2022-10-27 20:32] LABS: HEMATOCRIT 32.8 % (36.0-47.0); HEMOGLOBIN 10.9 g/dl (12.0-15.5)
[2022-10-27] MEDS: trandolapriL 1 MG TAB PO SCH (21:05)
[2022-10-27] MEDS: ATORVASTATIN 10 MG TAB PO SCH (21:05)
[2022-10-28] VITALS (11 sets, daily range): BP systolic 109–159; BP diastolic 55–72; TEMP 97.6–98.6; O2SAT 70–97
[2022-10-28] MEDS: ACETAMINOPHEN TAB 650MG DOSE (2X325MG) PO PRN ×3 (03:32→16:35)
[2022-10-28] MEDS: traMADol 50 MG TAB PO PRN ×2 (04:56→17:41)
[2022-10-28 05:04] LABS: HEMATOCRIT 33.5 % (36.0-47.0); MEAN CORPUSCULAR HGB CONC 32.8 g/dl (32.0-36.5); MEAN CORPUSCULAR VOLUME 97.4 fl (80.0-96.0); PLATELET COUNT, AUTOMATED 264 10^3/uL (150-450); RED BLOOD COUNT 3.44 10^6/uL (4.00-5.40); WHITE BLOOD COUNT 7.2 10^3/uL (4.0-10.0)
[2022-10-28 05:27] LABS: CREATININE FOR GFR 1.66 MG/DL (0.55-1.30); GLOMERULAR FILTRATION RATE 31.3 (>32); MAGNESIUM LEVEL 1.8 MG/DL (1.8-2.4); POTASSIUM SERUM 4.3 MMOL/L (3.5-5.1)
[2022-10-28] MEDS ORDERED: HYDROMORPHONE HCL 0.5 MG/ 0.5 ML SYRINGE IV ONE ×3 (07:00→18:30)
[2022-10-28] MEDS: ADVAIR HFA 230/21MCG INHALER INH SCH ×2 (07:18→19:22)
[2022-10-28] MEDS: NS 1,000 ML IV SCH ×3 (07:41→22:51)
[2022-10-28] MEDS: hydroCHLOROthiazide 12.5 MG CAPSULE PO SCH (08:09)
[2022-10-28] MEDS: ASPIRIN 81MG ENTERIC TABLET PO SCH (08:09)
[2022-10-28] MEDS: GLIMEPIRIDE 2 MG TAB PO SCH (08:10)
[2022-10-28] MEDS: MAGNESIUM OXIDE 400MG TAB (MAG-OX) PO SCH ×3 (08:10→20:21)
[2022-10-28] MEDS: OMEPRAZOLE 20MG CAP PO SCH (08:10)
[2022-10-28] MEDS: SENOKOT S TAB PO SCH ×2 (08:10→20:20)
[2022-10-28] MEDS: TRIAMCINOLONE ACET 0.1% CREAM 15GM TOP SCH ×2 (08:11→20:21)
[2022-10-28] MEDS ORDERED: diphenhydrAMINE 50MG/ML VIAL As Ordered ONE (13:43)
[2022-10-28] MEDS ORDERED: ISOVUE-300 61% 100ML VIAL As Ordered ONE (13:44)
[2022-10-28] MEDS ORDERED: MIDAZOLAM INJ 2MG/2ML VIAL As Ordered ONE (13:44)
[2022-10-28] MEDS ORDERED: fentaNYL 100 MCG/2 ML INJECTION As Ordered ONE (13:44)
[2022-10-28] MEDS ORDERED: LIDOCAINE 1% MDV 20ML VIAL As Ordered ONE (13:44)
[2022-10-28] MEDS ORDERED: ceFAZolin 2 GM/D5W 50 ML IV BAG As Ordered ONE (14:05)
[2022-10-28] MEDS ORDERED: ceFAZolin SOD 2 GM in IV 1 EA IV ONE (15:00)
[2022-10-28] MEDS: ATORVASTATIN 10 MG TAB PO SCH (20:21)
[2022-10-29] MEDS ORDERED: oxyBUTYnin 5 MG TAB PO ONE (03:00)
[2022-10-29] MEDS: NS 1,000 ML IV SCH (05:01)
[2022-10-29 06:00] VITALS: BP 136/66; TEMP 97.9; O2SAT 96
[2022-10-29 06:21] LABS: HEMATOCRIT 31.1 % (36.0-47.0); HEMOGLOBIN 9.9 g/dl (12.0-15.5); MEAN CORPUSCULAR HGB CONC 31.8 g/dl (32.0-36.5); MEAN CORPUSCULAR VOLUME 100.6 fl (80.0-96.0); PLATELET COUNT, AUTOMATED 205 10^3/uL (150-450); RED BLOOD COUNT 3.09 10^6/uL (4.00-5.40); WHITE BLOOD COUNT 8.5 10^3/uL (4.0-10.0)
[2022-10-29 07:02] LABS: CREATININE FOR GFR 1.36 MG/DL (0.55-1.30); GLOMERULAR FILTRATION RATE 39.3 (>32); MAGNESIUM LEVEL 1.6 MG/DL (1.8-2.4); POTASSIUM SERUM 4.1 MMOL/L (3.5-5.1)
[2022-10-29] MEDS: ADVAIR HFA 230/21MCG INHALER INH SCH ×2 (07:25→20:05)
[2022-10-29] MEDS: MAG SULF 1GM/100ML (MAG RUN) 1 GM in IV 1 EA IV SCH ×2 (08:59→10:22)
[2022-10-29] MEDS: OMEPRAZOLE 20MG CAP PO SCH (08:59)
[2022-10-29] MEDS: SENOKOT S TAB PO SCH ×2 (09:00→21:51)
[2022-10-29] MEDS: GLIMEPIRIDE 2 MG TAB PO SCH (09:00)
[2022-10-29] MEDS: MAGNESIUM OXIDE 400MG TAB (MAG-OX) PO SCH ×3 (09:00→21:52)
[2022-10-29] MEDS: TRIAMCINOLONE ACET 0.1% CREAM 15GM TOP SCH ×2 (09:00→21:00)
[2022-10-29] MEDS: ACETAMINOPHEN TAB 650MG DOSE (2X325MG) PO PRN (09:06)
[2022-10-29 11:00] VITALS: O2SAT 83
[2022-10-29 11:03] VITALS: O2SAT 92
[2022-10-29] MEDS ORDERED: AMLO1TAB24 PO (11:37)
[2022-10-29] MEDS ORDERED: ASPI81TAEC PO (11:37)
[2022-10-29] MEDS ORDERED: LevoFLOXacin 750 MG TABLET PO ONE (13:45)
[2022-10-29 14:00] VITALS: BP 152/72; TEMP 98.2; O2SAT 97
[2022-10-29] MEDS: amLODIPine 5 MG TAB PO SCH (16:27)
[2022-10-29 18:29] LABS: CALCIUM LEVEL 9.5 MG/DL (8.3-10.6); CREATININE FOR GFR 1.18 MG/DL (0.55-1.30); GLOMERULAR FILTRATION RATE 46.3 (>32); POTASSIUM SERUM 3.8 MMOL/L (3.5-5.1)
[2022-10-29] MEDS ORDERED: BISACODYL 10MG SUPP PR PRN (20:00)
[2022-10-29 20:06] VITALS: O2SAT 93
[2022-10-29 20:30] VITALS: BP 146/78; TEMP 97.7; O2SAT 96
[2022-10-29] MEDS: ATORVASTATIN 10 MG TAB PO SCH (21:51)
[2022-10-29] MEDS: traMADol 50 MG TAB PO PRN (23:24)
[2022-10-30] MEDS: ACETAMINOPHEN TAB 650MG DOSE (2X325MG) PO PRN ×2 (03:17→09:28)
[2022-10-30 06:00] VITALS: BP 137/54; TEMP 98.4; O2SAT 95
[2022-10-30 06:19] LABS: HEMATOCRIT 30.6 % (36.0-47.0); HEMOGLOBIN 9.9 g/dl (12.0-15.5); MEAN CORPUSCULAR HEMOGLOBIN 31.8 pg (27.0-33.0); MEAN CORPUSCULAR HGB CONC 32.4 g/dl (32.0-36.5); MEAN CORPUSCULAR VOLUME 98.4 fl (80.0-96.0); PLATELET COUNT, AUTOMATED 218 10^3/uL (150-450); RED BLOOD COUNT 3.11 10^6/uL (4.00-5.40); WHITE BLOOD COUNT 6.7 10^3/uL (4.0-10.0)
[2022-10-30 06:39] LABS: CREATININE FOR GFR 1.04 MG/DL (0.55-1.30); GLOMERULAR FILTRATION RATE 53.6 (>32); MAGNESIUM LEVEL 1.7 MG/DL (1.8-2.4); POTASSIUM SERUM 3.7 MMOL/L (3.5-5.1)
[2022-10-30] MEDS: ADVAIR HFA 230/21MCG INHALER INH SCH ×2 (07:38→19:23)
[2022-10-30 07:39] VITALS: O2SAT 93
[2022-10-30] MEDS ORDERED: oxyBUTYnin 5 MG TAB PO SCH (09:00)
[2022-10-30] MEDS: TRIAMCINOLONE ACET 0.1% CREAM 15GM TOP SCH ×2 (09:00→20:33)
[2022-10-30] MEDS: GLIMEPIRIDE 2 MG TAB PO SCH (09:28)
[2022-10-30] MEDS: amLODIPine 5 MG TAB PO SCH (09:28)
[2022-10-30] MEDS: OMEPRAZOLE 20MG CAP PO SCH (09:29)
[2022-10-30] MEDS: MAGNESIUM OXIDE 400MG TAB (MAG-OX) PO SCH ×2 (09:29→20:23)
[2022-10-30] MEDS: SENOKOT S TAB PO SCH ×2 (09:29→20:23)
[2022-10-30] MEDS: traMADol 50 MG TAB PO PRN ×2 (09:35→21:53)
[2022-10-30 11:38] VITALS: O2SAT 90
[2022-10-30 14:00] VITALS: BP 132/51; TEMP 98.1; O2SAT 89
[2022-10-30] MEDS: oxyBUTYnin *DITROPAN XL* 5 MG TABCR PO SCH (16:55)
[2022-10-30] MEDS: ATORVASTATIN 10 MG TAB PO SCH (20:23)
[2022-10-30 20:28] VITALS: BP 130/55; TEMP 98.2; O2SAT 90
[2022-10-31 06:00] VITALS: BP 125/68; TEMP 98.1; O2SAT 92
[2022-10-31] MEDS ORDERED: LevoFLOXacin 750 MG TABLET PO SCH (06:00)
[2022-10-31] MEDS: traMADol 50 MG TAB PO PRN (06:06)
[2022-10-31 06:16] LABS: HEMATOCRIT 33.9 % (36.0-47.0); HEMOGLOBIN 11.1 g/dl (12.0-15.5); MEAN CORPUSCULAR HEMOGLOBIN 31.7 pg (27.0-33.0); MEAN CORPUSCULAR HGB CONC 32.7 g/dl (32.0-36.5); MEAN CORPUSCULAR VOLUME 96.9 fl (80.0-96.0); PLATELET COUNT, AUTOMATED 291 10^3/uL (150-450)
[2022-10-31] MEDS: ADVAIR HFA 230/21MCG INHALER INH SCH (06:25)
[2022-10-31 06:53] LABS: CALCIUM LEVEL 9.3 MG/DL (8.3-10.6); CREATININE FOR GFR 1.02 MG/DL (0.55-1.30); GLOMERULAR FILTRATION RATE 54.8 (>32); MAGNESIUM LEVEL 1.5 MG/DL (1.8-2.4); POTASSIUM SERUM 4.2 MMOL/L (3.5-5.1)
[2022-10-31] MEDS: OMEPRAZOLE 20MG CAP PO SCH (08:37)
[2022-10-31] MEDS: SENOKOT S TAB PO SCH (08:37)
[2022-10-31 08:38] VITALS: BP 125/68
[2022-10-31] MEDS: oxyBUTYnin *DITROPAN XL* 5 MG TABCR PO SCH (08:38)
[2022-10-31] MEDS: amLODIPine 5 MG TAB PO SCH (08:38)
[2022-10-31] MEDS: GLIMEPIRIDE 2 MG TAB PO SCH (08:38)
[2022-10-31] MEDS: TRIAMCINOLONE ACET 0.1% CREAM 15GM TOP SCH (08:40)
[2022-10-31] MEDS ORDERED: MAGNESIUM OXIDE 400MG TAB (MAG-OX) PO SCH (09:00)
[2022-10-31] MEDS ORDERED: traMADol 50 MG TAB PO ONE (09:30)
[2022-10-31] MEDS ORDERED: LIDOCAINE 5% (LIDODERM) PATCH TD SCH (10:40)
[2022-10-31] MEDS ORDERED: MAGN400T2 PO (11:07)
[2022-10-31] MEDS ORDERED: TRAM50TA2 PO ×2 (11:07→13:34)
[2022-10-31] MEDS ORDERED: LIDO5TD TD (11:07)
[2022-10-31] MEDS ORDERED: DITR5TAB PO (11:07)
[2022-10-31] MEDS ORDERED: LEVO1TAB40 PO (11:07)
[2022-10-31] MEDS ORDERED: traMADol 50 MG TAB PO PRN (12:00)
== END 2022-10-31 14:04 | disposition home health service (06) | DRG 668 ==
LOC: M ED 10:54 → EDBD 10:54 → M ED INP 15:05 → ENRESERV 16:23 → M PCU 16:59 → M MSPAV 10-28 21:25
PROVIDERS: ADMIT Internal Medicine; ATTEND Internal Medicine
PROC: 0TBB8ZX Excision of Bladder, Via Natural or Artificial Opening Endoscopic, Diagnostic (ICD-10-PCS; principal; 2022-10-27 12:25)
PROC: 0TCB8ZZ Extirpation of Matter from Bladder, Via Natural or Artificial Opening Endoscopic (ICD-10-PCS; 2022-10-27 12:25)
PROC: 0T9030Z Drainage of Right Kidney with Drainage Device, Percutaneous Approach (ICD-10-PCS; 2022-10-28)
DX: C67.5 Malignant neoplasm of bladder neck (principal); J18.9 Pneumonia, unspecified organism; I13.0 Hypertensive heart and chronic kidney disease with heart failure and stage 1 through stage 4 chronic kidney disease, or unspecified chronic kidney disease; N13.30 Unspecified hydronephrosis; I16.9 Hypertensive crisis, unspecified; K86.2 Cyst of pancreas; N17.9 Acute kidney failure, unspecified; T39.2X5A Adverse effect of pyrazolone derivatives, initial encounter; R31.0 Gross hematuria; R09.02 Hypoxemia; I50.9 Heart failure, unspecified; Z66 Do not resuscitate; G47.33 Obstructive sleep apnea (adult) (pediatric); J44.9 Chronic obstructive pulmonary disease, unspecified; R73.03 Prediabetes; N18.30 Chronic kidney disease, stage 3 unspecified; I25.10 Atherosclerotic heart disease of native coronary artery without angina pectoris; I25.2 Old myocardial infarction; Z95.5 Presence of coronary angioplasty implant and graft; Z87.891 Personal history of nicotine dependence; R00.1 Bradycardia, unspecified; Z79.82 Long term (current) use of aspirin; Z79.899 Other long term (current) drug therapy; Z88.5 Allergy status to narcotic agent; Z88.8 Allergy status to other drugs, medicaments and biological substances; Z88.2 Allergy status to sulfonamides; Z87.442 Personal history of urinary calculi

== ENCOUNTER 2022-11-02 19:40 | Observation (INO) | payer MEDICARE, BC, OTHER ==
[~2022-11-02] VITALS: Ht 157.5 cm; Wt 68.2 kg
[~2022-11-02 19:40] MED LIST changes: +AMLO1TAB24 PO; +ASPI81TAEC PO; +DITR5TAB PO; +LEVO1TAB40 PO; +LIDO5TD TD; +TRAM50TA2 PO
[2022-11-02] MEDS ORDERED: ISOVUE-370 76% 100ML VIAL As Ordered ONE (21:03)
[2022-11-02 21:27] LABS: BASO % 0.3 % (0.0-1.0); EOS # 0.2 10^3/uL (0.0-0.5); EOS % 2.4 % (0.0-3.0); HEMATOCRIT 32.3 % (36.0-47.0); HEMOGLOBIN 10.8 g/dl (12.0-15.5); LYMPH # 1.3 10^3/uL (1.5-5.0); LYMPH % 13.4 % (24.0-44.0); MEAN CORPUSCULAR HEMOGLOBIN 32.2 pg (27.0-33.0); MEAN CORPUSCULAR HGB CONC 33.4 g/dl (32.0-36.5); MEAN CORPUSCULAR VOLUME 96.4 fl (80.0-96.0); MONO # 0.7 10^3/uL (0.0-0.8); NEUTROPHILS # 7.5 10^3/uL (1.5-8.5); NEUTROPHILS % 76.7 % (36.0-66.0); PLATELET COUNT, AUTOMATED 278 10^3/uL (150-450); RED BLOOD COUNT 3.35 10^6/uL (4.00-5.40); WHITE BLOOD COUNT 9.8 10^3/uL (4.0-10.0)
[2022-11-02 21:52] LABS: ALBUMIN 3.5 G/DL (3.2-5.2); BILIRUBIN,DIRECT 0.2 MG/DL (<0.4); BILIRUBIN,TOTAL 0.5 MG/DL (0.3-1.2); CREATININE FOR GFR 1.16 MG/DL (0.55-1.30); GLOMERULAR FILTRATION RATE 47.3 (>32); POTASSIUM SERUM 3.8 MMOL/L (3.5-5.1); TOTAL PROTEIN 6.2 G/DL (5.7-8.2)
[2022-11-02 21:53] LABS: CK-MB VALUE MASS 1.3 NG/ML (<3.6); MB/CK RELATIVE INDEX 1.68 (< OR =4)
[2022-11-02 23:19] LABS: CK-MB VALUE MASS 1.1 NG/ML (<3.6)
[2022-11-02 23:20] LABS: MB/CK RELATIVE INDEX 0.9 (< OR =4)
[2022-11-02 23:40] VITALS: O2SAT 87
[2022-11-02] MEDS ORDERED: IPRATROPIUM 0.5MG/ALBUTEROL 2.5MG INH SOL UD 3ML (DUONEB) NEB ONE (23:50)
[2022-11-03] MEDS ORDERED: MED REC IN PROGRESS XX ONE
[2022-11-03] MEDS ORDERED: ACETAMINOPHEN TAB 650MG DOSE (2X325MG) PO PRN (00:25)
[2022-11-03] MEDS ORDERED: ASPI-161 PO (00:45)
[2022-11-03] MEDS ORDERED: TRAM50TA2 PO (00:45)
[2022-11-03] MEDS ORDERED: LIDO5TD TOP (00:45)
[2022-11-03] MEDS ORDERED: AMLO1TAB24 PO (00:45)
[2022-11-03] MEDS ORDERED: HOME MED LIST COMPLETE! XX SCH (00:45)
[2022-11-03] MEDS ORDERED: LEVO1TAB40 PO (00:45)
[2022-11-03] MEDS ORDERED: OXYB15TA14 PO (00:45)
[2022-11-03] MEDS ORDERED: MAGN400T2 PO (00:45)
[2022-11-03] MEDS ORDERED: LIDOCAINE 5% (LIDODERM) PATCH TOP PRN (00:50)
[2022-11-03] MEDS ORDERED: MECLIZINE 25 MG TABLET PO PRN (00:50)
[2022-11-03] MEDS ORDERED: NITROGLYCERIN 0.4MG SUBL TABLET SL PRN (00:50)
[2022-11-03] MEDS ORDERED: traMADol 50 MG TAB PO PRN (00:50)
[2022-11-03 01:11] LABS: RSV AMPLIFICATION NEGATIVE (NEGATIVE)
[2022-11-03] MEDS: IPRATROPIUM 0.5MG/ALBUTEROL 2.5MG INH SOL UD 3ML (DUONEB) NEB SCH ×4 (02:00→19:51)
[2022-11-03] MEDS: ADVAIR HFA 230/21MCG INHALER INH SCH (08:33)
[2022-11-03] MEDS: oxyBUTYnin *DITROPAN XL* 5 MG TABCR PO SCH (09:06)
[2022-11-03] MEDS: DOCUSATE SODIUM 100MG CAPSULE PO SCH ×2 (09:06→20:10)
[2022-11-03] MEDS: MAGNESIUM OXIDE 400MG TAB (MAG-OX) PO SCH ×3 (09:07→20:10)
[2022-11-03] MEDS: OMEPRAZOLE 20MG CAP PO SCH (09:07)
[2022-11-03] MEDS: amLODIPine 5 MG TAB PO SCH (09:10)
[2022-11-03] MEDS: ASPIRIN 81MG ENTERIC TABLET PO SCH (09:10)
[2022-11-03] MEDS: ENOXAPARIN 40MG/0.4ML SYRINGE (J1650 PER 10MG) SC SCH (09:10)
[2022-11-03 13:54] VITALS: BP 136/70; TEMP 97.7; O2SAT 94
[2022-11-03 19:49] VITALS: BP 140/71; TEMP 98.6; O2SAT 93
[2022-11-03] MEDS ORDERED: ATORVASTATIN 10 MG TAB PO SCH (21:00)
[2022-11-04] MEDS: IPRATROPIUM 0.5MG/ALBUTEROL 2.5MG INH SOL UD 3ML (DUONEB) NEB SCH ×4 (03:02→12:29)
[2022-11-04 05:32] VITALS: BP 138/70; TEMP 98.1; O2SAT 93
[2022-11-04 05:56] LABS: HEMOGLOBIN 10.4 g/dl (12.0-15.5); MEAN CORPUSCULAR HEMOGLOBIN 31.8 pg (27.0-33.0); MEAN CORPUSCULAR HGB CONC 32.5 g/dl (32.0-36.5); MEAN CORPUSCULAR VOLUME 97.9 fl (80.0-96.0); PLATELET COUNT, AUTOMATED 261 10^3/uL (150-450); RED BLOOD COUNT 3.27 10^6/uL (4.00-5.40); WHITE BLOOD COUNT 6.8 10^3/uL (4.0-10.0)
[2022-11-04 06:25] LABS: CALCIUM LEVEL 9.5 MG/DL (8.3-10.6); CREATININE FOR GFR 1.07 MG/DL (0.55-1.30); GLOMERULAR FILTRATION RATE 51.9 (>32); MAGNESIUM LEVEL 1.7 MG/DL (1.8-2.4); POTASSIUM SERUM 3.7 MMOL/L (3.5-5.1)
[2022-11-04] MEDS ORDERED: MAGNESIUM OXIDE 400MG TAB (MAG-OX) PO ONE (07:20)
[2022-11-04] MEDS: ADVAIR HFA 230/21MCG INHALER INH SCH (07:38)
[2022-11-04] MEDS: ASPIRIN 81MG ENTERIC TABLET PO SCH (07:55)
[2022-11-04] MEDS: OMEPRAZOLE 20MG CAP PO SCH (07:55)
[2022-11-04] MEDS: oxyBUTYnin *DITROPAN XL* 5 MG TABCR PO SCH (07:55)
[2022-11-04] MEDS: ENOXAPARIN 40MG/0.4ML SYRINGE (J1650 PER 10MG) SC SCH (07:55)
[2022-11-04] MEDS: LevoFLOXacin 750 MG TABLET PO SCH ×2 (07:55→09:00)
[2022-11-04] MEDS: DOCUSATE SODIUM 100MG CAPSULE PO SCH (07:56)
[2022-11-04] MEDS: MAGNESIUM OXIDE 400MG TAB (MAG-OX) PO SCH (07:56)
[2022-11-04 08:03] VITALS: BP 130/60
[2022-11-04] MEDS: amLODIPine 5 MG TAB PO SCH (08:03)
== END 2022-11-04 13:44 | disposition home or self-care (01) ==
LOC: M ED 19:40 → EDBD 19:40 → M ED INP 19:41 → ENRESERV 11-03 12:58 → M MSPAV 11-03 13:54
PROVIDERS: ADMIT Internal Medicine; ATTEND Family Medicine
DX: R09.02 Hypoxemia (principal); R11.0 Nausea; J98.11 Atelectasis; J44.9 Chronic obstructive pulmonary disease, unspecified; C67.5 Malignant neoplasm of bladder neck; I13.0 Hypertensive heart and chronic kidney disease with heart failure and stage 1 through stage 4 chronic kidney disease, or unspecified chronic kidney disease; I50.9 Heart failure, unspecified; N18.30 Chronic kidney disease, stage 3 unspecified; I25.10 Atherosclerotic heart disease of native coronary artery without angina pectoris; Z95.5 Presence of coronary angioplasty implant and graft; E78.5 Hyperlipidemia, unspecified; R73.03 Prediabetes; N13.9 Obstructive and reflux uropathy, unspecified; Z93.6 Other artificial openings of urinary tract status; Z88.8 Allergy status to other drugs, medicaments and biological substances; Z88.5 Allergy status to narcotic agent; Z88.2 Allergy status to sulfonamides; Z88.1 Allergy status to other antibiotic agents; Z79.899 Other long term (current) drug therapy; Z79.891 Long term (current) use of opiate analgesic; Z79.82 Long term (current) use of aspirin; Z79.2 Long term (current) use of antibiotics; Z87.891 Personal history of nicotine dependence
CPT/HCPCS: 36415; 71046; 74177; 80048; 80076; 81001; 82550; 82553; 83690; 83735; 84484; 85025; 85027; 87631; 93005; 93041; 94640; 96372; 97116; 97161; 97165; 97530; 99285; G0378; J1650; Q9967

== ENCOUNTER → 2022-11-22 | Outpatient (POV) | payer MEDICARE, BC, OTHER ==
[~2022-11-22] VITALS: Ht 157.5 cm; Wt 68.1 kg
[~2022-11-22] MED LIST changes: -K-TA10TA PO; +LIDO5TD TOP; +OXYB15TA14 PO; +POTA-164 PO
[2022-11-22 10:05] VITALS: BP 133/76; O2SAT 97
== END ==
LOC: M IRPOV 09:46
PROVIDERS: ATTEND Radiology Diagnostic Radiology
DX: Z43.6 Encounter for attention to other artificial openings of urinary tract (principal); D49.4 Neoplasm of unspecified behavior of bladder; N13.30 Unspecified hydronephrosis; Z88.1 Allergy status to other antibiotic agents; Z88.2 Allergy status to sulfonamides; Z88.5 Allergy status to narcotic agent; Z88.8 Allergy status to other drugs, medicaments and biological substances

== ENCOUNTER → 2022-11-24 | Outpatient (REF) | payer MEDICARE, OTHER ==
[2022-11-24 18:52] LABS: ALBUMIN 3.6 G/DL (3.2-5.2); BLOOD UREA NITROGEN 14 MG/DL (9-23); CALCIUM LEVEL 10.7 MG/DL (8.3-10.6); CARBON DIOXIDE LEVEL 32 MMOL/L (20-31); CHLORIDE LEVEL 99 MMOL/L (98-107); CREATININE FOR GFR 0.94 MG/DL (0.55-1.30); GLOMERULAR FILTRATION RATE > 60.0 (>32); GLUCOSE, FASTING 120 MG/DL (74-106); MAGNESIUM LEVEL 1.6 MG/DL (1.8-2.4); PHOSPHORUS LEVEL 2.6 MG/DL (2.4-5.1); POTASSIUM SERUM 3.1 MMOL/L (3.5-5.1); SODIUM LEVEL 138 MMOL/L (136-145)
== END ==
LOC: M SHH 17:19
PROVIDERS: ATTEND Internal Medicine Cardiovascular Disease
DX: I50.32 Chronic diastolic (congestive) heart failure (principal)

== ENCOUNTER → 2022-12-06 | Outpatient (CLI) | payer MEDICARE, BC, OTHER ==
[~2022-12-06] MED LIST changes: +ISOVUE-300 61% 100ML VIAL As Ordered ONE; +POTA-136 PO; +SERT25TA21 PO
[2022-12-06 18:30] LABS: HEMATOCRIT 36.4 % (36.0-47.0); HEMOGLOBIN 11.5 g/dl (12.0-15.5); MEAN CORPUSCULAR HEMOGLOBIN 29.9 pg (27.0-33.0); MEAN CORPUSCULAR HGB CONC 31.6 g/dl (32.0-36.5); MEAN CORPUSCULAR VOLUME 94.8 fl (80.0-96.0); PLATELET COUNT, AUTOMATED 351 10^3/uL (150-450); RED BLOOD COUNT 3.84 10^6/uL (4.00-5.40); WHITE BLOOD COUNT 7.5 10^3/uL (4.0-10.0)
[2022-12-06 18:50] LABS: ALBUMIN 3.8 G/DL (3.2-5.2); ALKALINE PHOSPHATASE 97 U/L (46-116); ALT/SGPT 13 U/L (7.0-40); AST/SGOT < 8 U/L (<34); BILIRUBIN,TOTAL 0.8 MG/DL (0.3-1.2); BLOOD UREA NITROGEN 17 MG/DL (9-23); CALCIUM LEVEL 9.9 MG/DL (8.3-10.6); CARBON DIOXIDE LEVEL 26 MMOL/L (20-31); CHLORIDE LEVEL 105 MMOL/L (98-107); CREATININE FOR GFR 1.12 MG/DL (0.55-1.30); GLOMERULAR FILTRATION RATE 49.1 (>32); GLUCOSE, FASTING 196 MG/DL (74-106); POTASSIUM SERUM 4.2 MMOL/L (3.5-5.1); SODIUM LEVEL 140 MMOL/L (136-145); TOTAL PROTEIN 6.6 G/DL (5.7-8.2)
== END ==
LOC: M RAD 11:22
PROVIDERS: ATTEND Urology
DX: C67.9 Malignant neoplasm of bladder, unspecified (principal)
CPT/HCPCS: 76775; 80053; 80069; 83735; 85027; Q9967

== ENCOUNTER → 2022-12-07 | Outpatient (CLI) | payer MEDICARE, BC, OTHER ==
[~2022-12-07] MED LIST changes: -ISOVUE-300 61% 100ML VIAL As Ordered ONE
== END ==
LOC: M ONCR 10:39
PROVIDERS: ATTEND General Practice
DX: C67.2 Malignant neoplasm of lateral wall of bladder (principal); K86.2 Cyst of pancreas; E11.9 Type 2 diabetes mellitus without complications; J44.9 Chronic obstructive pulmonary disease, unspecified; I51.9 Heart disease, unspecified; I50.9 Heart failure, unspecified; Z71.2 Person consulting for explanation of examination or test findings; Z79.51 Long term (current) use of inhaled steroids; Z79.84 Long term (current) use of oral hypoglycemic drugs; Z79.899 Other long term (current) drug therapy; Z87.891 Personal history of nicotine dependence; Z88.1 Allergy status to other antibiotic agents; Z88.2 Allergy status to sulfonamides; Z88.5 Allergy status to narcotic agent; Z88.8 Allergy status to other drugs, medicaments and biological substances

== ENCOUNTER 2022-12-20 10:11 | Outpatient (RCR) | payer MEDICARE, BC, OTHER | END 2022-12-26 | LOC: M ONCR 10:11 | PROVIDERS: ATTEND General Practice | DX: C67.2 Malignant neoplasm of lateral wall of bladder (principal) ==

== ENCOUNTER → 2022-12-21 | Outpatient (CLI) | payer MEDICARE, BC, OTHER | LOC: M PLAIMG 13:17 | PROVIDERS: ATTEND General Practice | DX: C67.2 Malignant neoplasm of lateral wall of bladder (principal); J44.9 Chronic obstructive pulmonary disease, unspecified; R91.8 Other nonspecific abnormal finding of lung field; N18.32 Chronic kidney disease, stage 3b; E11.9 Type 2 diabetes mellitus without complications; I25.10 Atherosclerotic heart disease of native coronary artery without angina pectoris ==

== ENCOUNTER → 2022-12-21 | Outpatient (CLI) | payer MEDICARE, BC, OTHER ==
[2022-12-21 15:56] LABS: HEMOGLOBIN A1c 6.5 % (4.0-6.0)
[2022-12-21 15:58] LABS: ALBUMIN 4.1 G/DL (3.2-5.2); CALCIUM LEVEL 10.6 MG/DL (8.3-10.6); CHOLESTEROL RISK RATIO 2.51 (<5); CREATININE FOR GFR 1.4 MG/DL (0.55-1.30); HDL CHOLESTEROL 54.5 MG/DL (>40); LDL CHOLESTEROL 45.5 MG/DL (<100); NON-HDL-C 82.5 MG/DL; POTASSIUM SERUM 3.6 MMOL/L (3.5-5.1); TOTAL PROTEIN 7.1 G/DL (5.7-8.2)
== END ==
LOC: M PLALAB 13:51
PROVIDERS: ATTEND Nurse Practitioner Family
DX: N18.32 Chronic kidney disease, stage 3b (principal); E11.9 Type 2 diabetes mellitus without complications; I25.10 Atherosclerotic heart disease of native coronary artery without angina pectoris

== ENCOUNTER → 2022-12-27 | Outpatient (REF) | payer MEDICARE, OTHER ==
[2022-12-27 19:04] LABS: MAGNESIUM LEVEL 1.8 MG/DL (1.8-2.4); POTASSIUM SERUM 3.5 MMOL/L (3.5-5.1)
== END ==
LOC: M SHH 17:14
PROVIDERS: ATTEND Internal Medicine Cardiovascular Disease
DX: I50.32 Chronic diastolic (congestive) heart failure (principal); E83.42 Hypomagnesemia

== ENCOUNTER → 2023-01-26 | Outpatient (RCR) | payer MEDICARE, BC, OTHER ==
[~2023-01-26] MED LIST changes: +DEXA4TA PO; +FURO20TA2 PO
== END ==
LOC: M ONCR 01-04 14:49
PROVIDERS: ATTEND General Practice
DX: Z51.0 Encounter for antineoplastic radiation therapy (principal); C67.2 Malignant neoplasm of lateral wall of bladder

== ENCOUNTER → 2023-01-31 | Outpatient (REF) | payer MEDICARE, OTHER | LOC: M SMT 16:48 | PROVIDERS: ATTEND Urology | DX: C67.9 Malignant neoplasm of bladder, unspecified (principal); Z79.899 Other long term (current) drug therapy ==

== ENCOUNTER → 2023-02-08 | Outpatient (CLI) | payer MEDICARE, BC, OTHER ==
[~2023-02-08] MED LIST changes: +METO10TA2 PO
== END ==
LOC: M ONCR 08:59
PROVIDERS: ATTEND General Practice
DX: R63.0 Anorexia (principal)

== ENCOUNTER → 2023-03-01 | Outpatient (CLI) | payer MEDICARE, BC, OTHER ==
[~2023-03-01] MED LIST changes: +ISOVUE-370 76% 100ML VIAL ONE
== END ==
LOC: M PLAIMG 10:54
PROVIDERS: ATTEND Urology
DX: C67.9 Malignant neoplasm of bladder, unspecified (principal)
CPT/HCPCS: 74177; Q9967

== ENCOUNTER 2023-03-15 14:35 | Observation (INO) | payer MEDICARE, BC, OTHER ==
[~2023-03-15] VITALS: Ht 157.5 cm; Wt 58.2 kg
[~2023-03-15 14:35] MED LIST changes: -ISOVUE-370 76% 100ML VIAL ONE
[2023-03-15] MEDS ORDERED: NS 1,000 ML IV SCH ×2 (15:35→18:10)
[2023-03-15 15:50] LABS: BASO # 0.1 10^3/uL (0.0-0.2); BASO % 0.5 % (0.0-1.0); EOS % 0.4 % (0.0-3.0); HEMOGLOBIN 12.4 g/dl (12.0-15.5); LYMPH % 9.8 % (24.0-44.0); MEAN CORPUSCULAR HEMOGLOBIN 26.3 pg (27.0-33.0); MEAN CORPUSCULAR HGB CONC 32.6 g/dl (32.0-36.5); MEAN CORPUSCULAR VOLUME 80.5 fl (80.0-96.0); MONO # 0.6 10^3/uL (0.0-0.8); MONO % 6.3 % (2.0-8.0); NEUTROPHILS # 8.4 10^3/uL (1.5-8.5); NEUTROPHILS % 82.5 % (36.0-66.0); PLATELET COUNT, AUTOMATED 591 10^3/uL (150-450); RED BLOOD COUNT 4.72 10^6/uL (4.00-5.40); WHITE BLOOD COUNT 10.2 10^3/uL (4.0-10.0)
[2023-03-15 15:52] LABS: BILIRUBIN,DIRECT 0.3 MG/DL (<0.4); BILIRUBIN,TOTAL 0.8 MG/DL (0.3-1.2); CALCIUM LEVEL 10.1 MG/DL (8.3-10.6); CREATININE FOR GFR 1.42 MG/DL (0.55-1.30); GLOMERULAR FILTRATION RATE 37.3 (>32); MAGNESIUM LEVEL 1.9 MG/DL (1.8-2.4); POTASSIUM SERUM 4.2 MMOL/L (3.5-5.1)
[2023-03-15] MEDS ORDERED: ISOVUE-370 76% 100ML VIAL As Ordered ONE (16:31)
[2023-03-15] MEDS ORDERED: MED REC IN PROGRESS XX SCH (17:55)
[2023-03-15] MEDS ORDERED: ONDA8TAB8 PO (18:29)
[2023-03-15] MEDS ORDERED: HOME MED LIST COMPLETE! XX SCH (18:30)
[2023-03-15 18:52] VITALS: BP 148/80; TEMP 98.2; O2SAT 96
[2023-03-15] MEDS: ONDANSETRON 4MG 2ML VIAL IV SCH ×2 (18:56→23:39)
[2023-03-15] MEDS ORDERED: MIRTAZAPINE 15 MG TAB PO SCH (21:00)
[2023-03-16 05:40] VITALS: BP 119/66; TEMP 98.1; O2SAT 96
[2023-03-16] MEDS: ONDANSETRON 4MG 2ML VIAL IV SCH (05:43)
[2023-03-16 05:46] LABS: HEMATOCRIT 36.7 % (36.0-47.0); HEMOGLOBIN 11.9 g/dl (12.0-15.5); MEAN CORPUSCULAR HEMOGLOBIN 26.3 pg (27.0-33.0); MEAN CORPUSCULAR HGB CONC 32.4 g/dl (32.0-36.5); RED BLOOD COUNT 4.53 10^6/uL (4.00-5.40); WHITE BLOOD COUNT 7.6 10^3/uL (4.0-10.0)
[2023-03-16 05:48] LABS: PLATELET COUNT, AUTOMATED 413 10^3/uL (150-450)
[2023-03-16] MEDS ORDERED: HEPARIN SOD (PORCINE) 5000UNITS/ML 1ML VIAL/SYRINGE SQ SCH (06:00)
[2023-03-16 06:07] LABS: CALCIUM LEVEL 9.7 MG/DL (8.3-10.6); POTASSIUM SERUM 3.6 MMOL/L (3.5-5.1)
[2023-03-16] MEDS ORDERED: traMADol 50 MG TAB PO PRN (06:30)
[2023-03-16] MEDS ORDERED: ACETAMINOPHEN 500 MG TAB PO PRN (06:30)
[2023-03-16] MEDS ORDERED: ALBUTEROL 90 MCG/ACT 8GM HFA INHALER INH PRN (06:30)
[2023-03-16] MEDS ORDERED: ADVAIR HFA 230/21MCG INHALER INH SCH (08:00)
[2023-03-16] MEDS ORDERED: MAGNESIUM OXIDE 400MG TAB (MAG-OX) PO SCH (09:00)
[2023-03-16] MEDS ORDERED: amLODIPine 5 MG TAB PO SCH (09:00)
[2023-03-16] MEDS ORDERED: ASPIRIN 81MG ENTERIC TABLET PO SCH (09:00)
[2023-03-16 09:52] VITALS: BP 132/64; TEMP 98.2; O2SAT 87
[2023-03-16] MEDS ORDERED: MIRT1TAB16 PO (10:16)
[2023-03-16] MEDS ORDERED: DEXA4TA PO (10:16)
[2023-03-16 11:01] VITALS: BP 138/84
[2023-03-16] MEDS ORDERED: ATORVASTATIN 10 MG TAB PO SCH (21:00)
== END 2023-03-16 11:30 | disposition home or self-care (01) ==
LOC: M ED 14:35 → INTOOBSV 14:36 → M ED INP 14:36 → M MS5PR 18:45
PROVIDERS: ADMIT Internal Medicine; ATTEND Internal Medicine
DX: R11.2 Nausea with vomiting, unspecified (principal); R63.0 Anorexia; E87.1 Hypo-osmolality and hyponatremia; E87.8 Other disorders of electrolyte and fluid balance, not elsewhere classified; J44.9 Chronic obstructive pulmonary disease, unspecified; I50.9 Heart failure, unspecified; I25.10 Atherosclerotic heart disease of native coronary artery without angina pectoris; I11.0 Hypertensive heart disease with heart failure; N18.30 Chronic kidney disease, stage 3 unspecified; N17.9 Acute kidney failure, unspecified; Z85.51 Personal history of malignant neoplasm of bladder; Z92.3 Personal history of irradiation; Z88.5 Allergy status to narcotic agent; Z88.8 Allergy status to other drugs, medicaments and biological substances; Z88.1 Allergy status to other antibiotic agents; Z88.2 Allergy status to sulfonamides; Z87.891 Personal history of nicotine dependence; Z79.899 Other long term (current) drug therapy
CPT/HCPCS: 36415; 74177; 80048; 80076; 83690; 83735; 85025; 85027; 87486; 87581; 87633; 87798; 93005; 93041; 94640; 96361; 96372; 96374; 96376; 97161; 97165; 97530; 97535; 99285; G0378; J2405; Q9967

== ENCOUNTER → 2023-03-22 | Outpatient (CLI) | payer MEDICARE, BC, OTHER ==
[~2023-03-22] VITALS: Ht 157.5 cm; Wt 57.0 kg
[~2023-03-22] MED LIST changes: +ISOVUE-300 61% 100ML VIAL As Ordered ONE; +LIDOCAINE 1% MDV 20ML VIAL As Ordered ONE; +MIDAZOLAM INJ 2MG/2ML VIAL As Ordered ONE; +MIRT1TAB16 PO; +ONDA8TAB8 PO; +ceFAZolin 2 GM/D5W 50 ML IV BAG As Ordered ONE; +ceFAZolin SOD 2 GM in IV 1 EA IV ONE; +fentaNYL 100 MCG/2 ML INJECTION As Ordered ONE
[2023-03-22 14:00] VITALS: TEMP 97.6
[2023-03-22 15:44] VITALS: BP 161/81; O2SAT 94
== END ==
LOC: M IRPRO 13:24
PROVIDERS: ATTEND Urology
DX: N28.89 Other specified disorders of kidney and ureter (principal); C67.9 Malignant neoplasm of bladder, unspecified
CPT/HCPCS: 50435; C1729; J0690; J3010; Q9967

== ENCOUNTER → 2023-03-28 | Outpatient (REF) | payer MEDICARE, BC, OTHER ==
[~2023-03-28] MED LIST changes: -ISOVUE-300 61% 100ML VIAL As Ordered ONE; -LIDOCAINE 1% MDV 20ML VIAL As Ordered ONE; -MIDAZOLAM INJ 2MG/2ML VIAL As Ordered ONE; -ceFAZolin 2 GM/D5W 50 ML IV BAG As Ordered ONE; -ceFAZolin SOD 2 GM in IV 1 EA IV ONE; -fentaNYL 100 MCG/2 ML INJECTION As Ordered ONE
[2023-03-28 17:36] LABS: ALBUMIN 3.3 G/DL (3.2-5.2); BILIRUBIN,TOTAL 0.8 MG/DL (0.3-1.2); CALCIUM LEVEL 9.9 MG/DL (8.3-10.6); CREATININE FOR GFR 1.34 MG/DL (0.55-1.30); GLOMERULAR FILTRATION RATE 39.9 (>32); POTASSIUM SERUM 4.3 MMOL/L (3.5-5.1); TOTAL PROTEIN 6.6 G/DL (5.7-8.2)
== END ==
LOC: M SFHCCLAY 11:43
PROVIDERS: ATTEND Nurse Practitioner Family
DX: C67.2 Malignant neoplasm of lateral wall of bladder (principal)

== ENCOUNTER → 2023-03-29 | Outpatient (REF) | payer MEDICARE, OTHER ==
[2023-03-29 18:53] LABS: CALCIUM LEVEL 9.3 MG/DL (8.3-10.6); CREATININE FOR GFR 1.36 MG/DL (0.55-1.30); GLOMERULAR FILTRATION RATE 39.2 (>32); MAGNESIUM LEVEL 1.8 MG/DL (1.8-2.4); PHOSPHORUS LEVEL 4.2 MG/DL (2.4-5.1)
== END ==
LOC: M SHH 17:09
PROVIDERS: ATTEND Internal Medicine Cardiovascular Disease
DX: E83.42 Hypomagnesemia (principal); I50.32 Chronic diastolic (congestive) heart failure

== ENCOUNTER → 2023-05-12 | Outpatient (REF) | payer MEDICARE, BC, OTHER ==
[2023-05-12 17:51] LABS: BASO # 0.1 10^3/uL (0.0-0.2); BASO % 0.5 % (0.0-1.0); EOS % 0.3 % (0.0-3.0); HEMATOCRIT 39.1 % (36.0-47.0); HEMOGLOBIN 12.7 g/dl (12.0-15.5); LYMPH # 1.2 10^3/uL (1.5-5.0); LYMPH % 13.2 % (24.0-44.0); MEAN CORPUSCULAR HEMOGLOBIN 27.9 pg (27.0-33.0); MEAN CORPUSCULAR HGB CONC 32.5 g/dl (32.0-36.5); MEAN CORPUSCULAR VOLUME 85.7 fl (80.0-96.0); MONO # 0.8 10^3/uL (0.0-0.8); MONO % 8.4 % (2.0-8.0); NEUTROPHILS # 7.1 10^3/uL (1.5-8.5); NEUTROPHILS % 77.2 % (36.0-66.0); PLATELET COUNT, AUTOMATED 465 10^3/uL (150-450); RED BLOOD COUNT 4.56 10^6/uL (4.00-5.40); WHITE BLOOD COUNT 9.2 10^3/uL (4.0-10.0)
[2023-05-12 18:07] LABS: ALBUMIN 3.5 G/DL (3.2-5.2); BILIRUBIN,TOTAL 0.7 MG/DL (0.3-1.2); CALCIUM LEVEL 10.2 MG/DL (8.3-10.6); CREATININE FOR GFR 1.39 MG/DL (0.55-1.30); GLOMERULAR FILTRATION RATE 38.3 (>32); MAGNESIUM LEVEL 2.4 MG/DL (1.8-2.4); POTASSIUM SERUM 4.2 MMOL/L (3.5-5.1); TOTAL PROTEIN 6.5 G/DL (5.7-8.2)
[2023-05-12 18:08] LABS: THYROID STIMULATING HORMONE 1.762 uIU/ML (0.55-4.78)
[2023-05-12 18:09] LABS: FREE T4 1.1 NG/DL (0.89-1.76)
== END ==
LOC: M SFHCCLAY 13:46
PROVIDERS: ATTEND Nurse Practitioner Family
DX: R63.4 Abnormal weight loss (principal)

== ENCOUNTER → 2023-05-18 | Outpatient (REF) | payer MEDICARE, BC, OTHER ==
[2023-05-18 18:31] LABS: CREATININE FOR GFR 1.2 MG/DL (0.55-1.30); GLOMERULAR FILTRATION RATE 45.3 (>32); POTASSIUM SERUM 4.1 MMOL/L (3.5-5.1)
== END ==
LOC: M SFHCCLAY 11:27
PROVIDERS: ATTEND Nurse Practitioner Family
DX: E87.1 Hypo-osmolality and hyponatremia (principal)

== ENCOUNTER → 2023-05-19 | Outpatient (CLI) | payer MEDICARE, BC, OTHER ==
[~2023-05-19] MED LIST changes: +GASTROGRAFIN SOLUTION 30ML As Ordered ONE; +ISOVUE-370 76% 100ML VIAL As Ordered ONE
== END ==
LOC: M RAD 06:44
PROVIDERS: ATTEND Nurse Practitioner Family
DX: K86.9 Disease of pancreas, unspecified (principal); R16.0 Hepatomegaly, not elsewhere classified; R63.4 Abnormal weight loss
CPT/HCPCS: 74177; Q9963; Q9967

== ENCOUNTER → 2023-05-26 | Outpatient (REF) | payer MEDICARE, BC, OTHER ==
[~2023-05-26] MED LIST changes: -GASTROGRAFIN SOLUTION 30ML As Ordered ONE; -ISOVUE-370 76% 100ML VIAL As Ordered ONE
[2023-05-26 17:52] LABS: ALBUMIN 3.5 G/DL (3.2-5.2); CREATININE FOR GFR 1.26 MG/DL (0.55-1.30); GLOMERULAR FILTRATION RATE 42.9 (>32); MAGNESIUM LEVEL 1.9 MG/DL (1.8-2.4); PHOSPHORUS LEVEL 4.3 MG/DL (2.4-5.1); POTASSIUM SERUM 4.3 MMOL/L (3.5-5.1)
== END ==
LOC: M LABDRAWC 16:59
PROVIDERS: ATTEND Internal Medicine Cardiovascular Disease
DX: E83.42 Hypomagnesemia (principal); I50.32 Chronic diastolic (congestive) heart failure

== ENCOUNTER → 2023-06-02 | Outpatient (CLI) | payer MEDICARE, BC, OTHER ==
[~2023-06-02] MED LIST changes: +PROHANCE 279.3MG/ML 15ML VIAL As Ordered ONE
== END ==
LOC: M RAD 09:03
PROVIDERS: ATTEND Family Medicine
DX: K86.2 Cyst of pancreas (principal); Z93.6 Other artificial openings of urinary tract status
CPT/HCPCS: 74181; A9576

== ENCOUNTER → 2023-06-29 | Outpatient (REF) | payer MEDICARE, OTHER ==
[~2023-06-29] MED LIST changes: -PROHANCE 279.3MG/ML 15ML VIAL As Ordered ONE
[2023-06-29 18:29] LABS: BASO # 0.1 10^3/uL (0.0-0.2); BASO % 0.5 % (0.0-1.0); EOS % 0.2 % (0.0-3.0); HEMATOCRIT 37.3 % (36.0-47.0); HEMOGLOBIN 12.6 g/dl (12.0-15.5); LYMPH # 1.3 10^3/uL (1.5-5.0); LYMPH % 11.7 % (24.0-44.0); MEAN CORPUSCULAR HEMOGLOBIN 28.5 pg (27.0-33.0); MEAN CORPUSCULAR HGB CONC 33.8 g/dl (32.0-36.5); MEAN CORPUSCULAR VOLUME 84.4 fl (80.0-96.0); MONO # 0.7 10^3/uL (0.0-0.8); MONO % 6.3 % (2.0-8.0); NEUTROPHILS # 8.9 10^3/uL (1.5-8.5); PLATELET COUNT, AUTOMATED 520 10^3/uL (150-450); RED BLOOD COUNT 4.42 10^6/uL (4.00-5.40); WHITE BLOOD COUNT 10.9 10^3/uL (4.0-10.0)
[2023-06-29 18:32] LABS: ALBUMIN 3.3 G/DL (3.2-5.2); BILIRUBIN,TOTAL 0.9 MG/DL (0.3-1.2); CALCIUM LEVEL 10.2 MG/DL (8.3-10.6); CREATININE FOR GFR 1.1 MG/DL (0.55-1.30); GLOMERULAR FILTRATION RATE 50.1 (>32); POTASSIUM SERUM 4.1 MMOL/L (3.5-5.1); TOTAL PROTEIN 6.8 G/DL (5.7-8.2)
== END ==
LOC: M SFHCCLAY 11:02
PROVIDERS: ATTEND Nurse Practitioner Family
DX: R11.0 Nausea (principal); E87.1 Hypo-osmolality and hyponatremia; R63.4 Abnormal weight loss; K86.9 Disease of pancreas, unspecified; K76.9 Liver disease, unspecified

== ENCOUNTER → 2023-07-03 | Outpatient (CLI) | payer MEDICARE, BC, OTHER | LOC: M PLAIMG 08:58 | PROVIDERS: ATTEND Nurse Practitioner Family | DX: R63.4 Abnormal weight loss (principal) ==

== ENCOUNTER → 2023-07-10 | Outpatient (CLI) | payer MEDICARE, BC, OTHER ==
[~2023-07-10] VITALS: Ht 157.5 cm; Wt 50.0 kg
[~2023-07-10] MED LIST changes: +ISOVUE-300 61% 100ML VIAL As Ordered ONE; +LIDOCAINE 1% MDV 20ML VIAL As Ordered ONE; +ceFAZolin 1GM VIAL As Ordered ONE; +ceFAZolin 2 GM/D5W 50 ML IV BAG As Ordered ONE; +fentaNYL 100 MCG/2 ML INJECTION As Ordered ONE
[2023-07-10 09:55] VITALS: TEMP 97.5
[2023-07-10] MEDS: ceFAZolin SOD 1 GM in D5W MINI-BAG PLUS 50 ML IV ONE (11:14)
[2023-07-10] MEDS: ceFAZolin SOD 2 GM in IV 1 EA IV ONE (11:29)
[2023-07-10 12:10] VITALS: BP 143/63; O2SAT 97
== END ==
LOC: M IRPRO 09:34
PROVIDERS: ATTEND Urology
DX: N28.89 Other specified disorders of kidney and ureter (principal)
CPT/HCPCS: 50435; 75984; C1729; C1769; J0690; Q9967

== ENCOUNTER → 2023-07-25 | Outpatient (REF) | payer MEDICARE, OTHER ==
[~2023-07-25] MED LIST changes: -ASPI-161 PO; +ASPI-615 PO; -ISOVUE-300 61% 100ML VIAL As Ordered ONE; -LIDOCAINE 1% MDV 20ML VIAL As Ordered ONE; -ceFAZolin 1GM VIAL As Ordered ONE; -ceFAZolin 2 GM/D5W 50 ML IV BAG As Ordered ONE; -fentaNYL 100 MCG/2 ML INJECTION As Ordered ONE
[2023-07-25 17:30] LABS: APPEARANCE, URINE MANUAL TURBID (CLEAR); COLOR, URINE MANUAL BROWN (YELLOW)
[2023-07-25 17:31] LABS: GLUCOSE, URINE (UA) MANUAL NEGATIVE (NEGATIVE); KETONE, URINE MANUAL OBSCURED mg/dL (NEGATIVE); PROTEIN, URINE MANUAL 3+ mg/dL (NEGATIVE); SPECIFIC GRAVITY,URINE MANUAL 1.022 (1.002-1.035)
[2023-07-25 17:32] LABS: BILIRUBIN, URINE MANUAL OBSCURED (NEGATIVE); BLOOD URINE MANUAL POSITIVE (NEGATIVE); LEUKOCYTE ESTERASE, URINE MAN POSITIVE (NEGATIVE); NITRITE, URINE MANUAL NEGATIVE (NEGATIVE); UROBILINOGEN, URINE MANUAL NORMAL (NORMAL)
[2023-07-25 17:37] LABS: BASO % 0.4 % (0.0-1.0); EOS # 0.1 10^3/uL (0.0-0.5); EOS % 0.6 % (0.0-3.0); HEMATOCRIT 36.2 % (36.0-47.0); HEMOGLOBIN 12.3 g/dl (12.0-15.5); LYMPH # 1.3 10^3/uL (1.5-5.0); LYMPH % 15.1 % (24.0-44.0); MEAN CORPUSCULAR HEMOGLOBIN 29.1 pg (27.0-33.0); MEAN CORPUSCULAR VOLUME 85.8 fl (80.0-96.0); MONO # 0.7 10^3/uL (0.0-0.8); MONO % 8.2 % (2.0-8.0); NEUTROPHILS # 6.4 10^3/uL (1.5-8.5); NEUTROPHILS % 75.3 % (36.0-66.0); PLATELET COUNT, AUTOMATED 568 10^3/uL (150-450); RED BLOOD COUNT 4.22 10^6/uL (4.00-5.40); WHITE BLOOD COUNT 8.4 10^3/uL (4.0-10.0)
[2023-07-25 17:51] LABS: BACTERIA, URINE MOD AMOUNT; HYALINE CAST, URINE NONE SEEN /lpf (0-1); RBC, URINE TNTC /hpf (0-3); SQUAMOUS EPITHELIAL CELL URINE NONE SEEN /hpf (SMALL AMT); WBC, URINE 20-30 /hpf (0-3)
[2023-07-25 18:00] LABS: ALKALINE PHOSPHATASE 122 U/L (46-116); ALT/SGPT < 9 U/L (7.0-40); AST/SGOT 10 U/L (<34); BILIRUBIN,TOTAL 0.6 MG/DL (0.3-1.2); BLOOD UREA NITROGEN 16 MG/DL (9-23); CALCIUM LEVEL 9.7 MG/DL (8.3-10.6); CARBON DIOXIDE LEVEL 25 MMOL/L (20-31); CHLORIDE LEVEL 98 MMOL/L (98-107); CREATININE FOR GFR 1.24 MG/DL (0.55-1.30); GLOMERULAR FILTRATION RATE 43.7 (>32); GLUCOSE, FASTING 141 MG/DL (74-106); IRON (FE) 34 UG/DL (50-170); PERCENT SATURATION 11.4 % (13.2-45.0); POTASSIUM SERUM 4.3 MMOL/L (3.5-5.1); SODIUM LEVEL 129 MMOL/L (136-145); TOTAL IRON BINDING CAPACITY 298 UG/DL (250-425); TOTAL PROTEIN 6.1 G/DL (5.7-8.2)
[2023-07-25 18:03] LABS: FERRITIN 32.9 NG/ML (7.3-270.7)
== END ==
LOC: M SFHCCLAY 11:18
PROVIDERS: ATTEND Nurse Practitioner Family
DX: N89.8 Other specified noninflammatory disorders of vagina (principal); R30.0 Dysuria; R11.0 Nausea; E87.1 Hypo-osmolality and hyponatremia; R63.4 Abnormal weight loss; Z86.39 Personal history of other endocrine, nutritional and metabolic disease

== ENCOUNTER → 2023-07-27 | Outpatient (REF) | payer MEDICARE, OTHER ==
[2023-07-27 19:02] LABS: BASO # 0.1 10^3/uL (0.0-0.2); BASO % 0.6 % (0.0-1.0); EOS % 0.3 % (0.0-3.0); HEMOGLOBIN 12.1 g/dl (12.0-15.5); LYMPH # 0.9 10^3/uL (1.5-5.0); LYMPH % 10.8 % (24.0-44.0); MEAN CORPUSCULAR HEMOGLOBIN 28.9 pg (27.0-33.0); MEAN CORPUSCULAR HGB CONC 33.6 g/dl (32.0-36.5); MEAN CORPUSCULAR VOLUME 86.1 fl (80.0-96.0); MONO # 0.7 10^3/uL (0.0-0.8); MONO % 7.5 % (2.0-8.0); NEUTROPHILS % 80.5 % (36.0-66.0); PLATELET COUNT, AUTOMATED 539 10^3/uL (150-450); RED BLOOD COUNT 4.18 10^6/uL (4.00-5.40); WHITE BLOOD COUNT 8.6 10^3/uL (4.0-10.0)
[2023-07-27 19:30] LABS: ALKALINE PHOSPHATASE 110 U/L (46-116); ALT/SGPT < 9 U/L (7.0-40); AST/SGOT 9 U/L (<34); BILIRUBIN,TOTAL 0.4 MG/DL (0.3-1.2); BLOOD UREA NITROGEN 19 MG/DL (9-23); CALCIUM LEVEL 9.5 MG/DL (8.3-10.6); CARBON DIOXIDE LEVEL 25 MMOL/L (20-31); CHLORIDE LEVEL 93 MMOL/L (98-107); CREATININE FOR GFR 1.29 MG/DL (0.55-1.30); GLOMERULAR FILTRATION RATE 41.7 (>32); GLUCOSE, FASTING 198 MG/DL (74-106); SODIUM LEVEL 127 MMOL/L (136-145); TOTAL PROTEIN 6.1 G/DL (5.7-8.2)
== END ==
LOC: M SFHCCLAY 13:23
PROVIDERS: ATTEND Nurse Practitioner Family
DX: N30.01 Acute cystitis with hematuria (principal)

== ENCOUNTER → 2023-07-27 | Outpatient (CLI) | payer MEDICARE, OTHER | LOC: M RAD 14:24 | PROVIDERS: ATTEND Nurse Practitioner Family | DX: R10.9 Unspecified abdominal pain (principal) ==

== ENCOUNTER → 2023-07-28 | Outpatient (REF) | payer MEDICARE, OTHER | LOC: M SFHCCLAY 10:04 | PROVIDERS: ATTEND Nurse Practitioner Family | DX: Z12.72 Encounter for screening for malignant neoplasm of vagina (principal); N93.9 Abnormal uterine and vaginal bleeding, unspecified ==

== ENCOUNTER 2023-09-18 11:02 | Emergency (ER) | payer MEDICARE, BC ==
[~2023-09-18] VITALS: Ht 157.5 cm; Wt 52.1 kg
[2023-09-18 11:43] VITALS: TEMP 98.3
[2023-09-18 13:10] LABS: BASO # 0.1 10^3/uL (0.0-0.2); BASO % 0.6 % (0.0-1.0); EOS % 0.5 % (0.0-3.0); HEMATOCRIT 33.2 % (36.0-47.0); HEMOGLOBIN 11.4 g/dl (12.0-15.5); LYMPH # 0.8 10^3/uL (1.5-5.0); LYMPH % 9.7 % (24.0-44.0); MEAN CORPUSCULAR HEMOGLOBIN 30.2 pg (27.0-33.0); MEAN CORPUSCULAR HGB CONC 34.3 g/dl (32.0-36.5); MEAN CORPUSCULAR VOLUME 87.8 fl (80.0-96.0); MONO # 0.5 10^3/uL (0.0-0.8); MONO % 5.5 % (2.0-8.0); NEUTROPHILS % 83.3 % (36.0-66.0); PLATELET COUNT, AUTOMATED 388 10^3/uL (150-450); RED BLOOD COUNT 3.78 10^6/uL (4.00-5.40); WHITE BLOOD COUNT 8.4 10^3/uL (4.0-10.0)
[2023-09-18 13:42] LABS: ALBUMIN 2.9 G/DL (3.2-5.2); BILIRUBIN,DIRECT 0.2 MG/DL (<0.4); BILIRUBIN,TOTAL 0.5 MG/DL (0.3-1.2); CALCIUM LEVEL 9.1 MG/DL (8.3-10.6); CREATININE FOR GFR 0.95 MG/DL (0.55-1.30); GLOMERULAR FILTRATION RATE 59.4 (>32)
[2023-09-18] MEDS ORDERED: ISOVUE-370 76% 100ML VIAL As Ordered ONE (13:57)
[2023-09-18] MEDS: cefTRIAXone SOD 1 GM in D5W MINI-BAG PLUS 50 ML IV ONE (14:13)
[2023-09-18 16:10] VITALS: BP 155/82; O2SAT 100
== END 2023-09-18 16:10 | disposition home or self-care (01) ==
LOC: EDBD 11:02 → M ED 11:02
DX: R10.9 Unspecified abdominal pain (principal); K57.30 Diverticulosis of large intestine without perforation or abscess without bleeding; K76.0 Fatty (change of) liver, not elsewhere classified; Z85.51 Personal history of malignant neoplasm of bladder; I11.0 Hypertensive heart disease with heart failure; I25.10 Atherosclerotic heart disease of native coronary artery without angina pectoris; E11.9 Type 2 diabetes mellitus without complications; J44.9 Chronic obstructive pulmonary disease, unspecified; Z87.891 Personal history of nicotine dependence; Z95.5 Presence of coronary angioplasty implant and graft; Z79.82 Long term (current) use of aspirin; Z79.899 Other long term (current) drug therapy; Z88.5 Allergy status to narcotic agent; Z88.2 Allergy status to sulfonamides; Z88.8 Allergy status to other drugs, medicaments and biological substances
CPT/HCPCS: 74177; 80048; 80076; 81001; 83690; 85025; 87088; 87186; 93041; 96365; 99285; J0696; Q9967

== ENCOUNTER → 2023-09-26 | Outpatient (REF) | payer MEDICARE, BC ==
[2023-09-26 18:11] LABS: TOTAL IRON BINDING CAPACITY 357 UG/DL (250-425)
[2023-09-26 18:12] LABS: ALBUMIN 3.1 G/DL (3.2-5.2); ALKALINE PHOSPHATASE 113 U/L (46-116); ALT/SGPT < 9 U/L (7.0-40); AST/SGOT 10 U/L (<34); BILIRUBIN,TOTAL 0.5 MG/DL (0.3-1.2); BLOOD UREA NITROGEN 15 MG/DL (9-23); CALCIUM LEVEL 9.8 MG/DL (8.3-10.6); CARBON DIOXIDE LEVEL 27 MMOL/L (20-31); CHLORIDE LEVEL 98 MMOL/L (98-107); CREATININE FOR GFR 1.28 MG/DL (0.55-1.30); GLOMERULAR FILTRATION RATE 42.1 (>32); GLUCOSE, FASTING 177 MG/DL (74-106); IRON (FE) 57 UG/DL (50-170); SODIUM LEVEL 132 MMOL/L (136-145); TOTAL PROTEIN 6.1 G/DL (5.7-8.2)
[2023-09-26 18:13] LABS: FERRITIN 14.3 NG/ML (7.3-270.7)
[2023-09-27 10:49] LABS: HEMATOCRIT 34.3 % (36.0-47.0); HEMOGLOBIN 11.2 g/dl (12.0-15.5); RED BLOOD COUNT 3.74 10^6/uL (4.00-5.40); WHITE BLOOD COUNT 10.2 10^3/uL (4.0-10.0)
[2023-09-27 10:50] LABS: MEAN CORPUSCULAR HEMOGLOBIN 29.9 pg (27.0-33.0); MEAN CORPUSCULAR VOLUME 91.7 fl (80.0-96.0)
[2023-09-27 10:51] LABS: LYMPH % 10.6 % (24.0-44.0); MEAN CORPUSCULAR HGB CONC 32.7 g/dl (32.0-36.5); MONO % 5.6 % (2.0-8.0); NEUTROPHILS % 81.9 % (36.0-66.0); PLATELET COUNT, AUTOMATED 453 10^3/uL (150-450)
[2023-09-27 10:52] LABS: BASO % 0.6 % (0.0-1.0); EOS % 0.7 % (0.0-3.0); LYMPH # 1.1 10^3/uL (1.5-5.0); MONO # 0.6 10^3/uL (0.0-0.8); NEUTROPHILS # 8.4 10^3/uL (1.5-8.5)
[2023-09-27 10:53] LABS: BASO # 0.1 10^3/uL (0.0-0.2); EOS # 0.1 10^3/uL (0.0-0.5)
== END ==
LOC: M SFHCCLAY 14:20
PROVIDERS: ATTEND Nurse Practitioner Family
DX: D50.9 Iron deficiency anemia, unspecified (principal)

== ENCOUNTER → 2023-10-02 | Outpatient (CLI) | payer MEDICARE, BC ==
[~2023-10-02] MED LIST changes: +CEPHALEXIN 500 MG CAP As Ordered ONE; +ISOVUE-300 61% 100ML VIAL As Ordered ONE; +LIDOCAINE 1% MDV 20ML VIAL As Ordered ONE; +PEPC20TA18 PO; +PHEN1TAB73 PO
[2023-10-02 11:41] VITALS: TEMP 98.7
[2023-10-02] MEDS: CEPHALEXIN 500 MG CAP PO ONE (12:35)
[2023-10-02 13:22] VITALS: BP 139/85; O2SAT 98
== END ==
LOC: M IRPRO 11:25
PROVIDERS: ATTEND Urology
DX: N13.30 Unspecified hydronephrosis (principal)
CPT/HCPCS: 50435; 75984; C1729; C1769; Q9967

== ENCOUNTER → 2023-11-01 | Outpatient (REF) | payer MEDICARE, BC ==
[~2023-11-01] MED LIST changes: -CEPHALEXIN 500 MG CAP As Ordered ONE; -ISOVUE-300 61% 100ML VIAL As Ordered ONE; -LIDOCAINE 1% MDV 20ML VIAL As Ordered ONE; +ONDA-284 PO; -ONDA8TAB8 PO
[2023-11-01 18:19] LABS: HEMOGLOBIN A1c 5.9 % (4.0-6.0)
== END ==
LOC: M SFHCCLAY 13:42
PROVIDERS: ATTEND Nurse Practitioner Family
DX: E16.2 Hypoglycemia, unspecified (principal); N89.8 Other specified noninflammatory disorders of vagina

== ENCOUNTER → 2023-11-07 | Outpatient (REF) | payer MEDICARE, BC ==
[2023-11-08 12:20] LABS: APPEARANCE, URINE HAZY (CLEAR); BACTERIA, URINE AUTO 1+ (NEGATIVE); BILIRUBIN, URINE AUTO NEGATIVE (NEGATIVE); BLOOD, URINE BLOOD 3+ (NEGATIVE); COLOR, URINE RED (YELLOW); GLUCOSE, URINE (UA) AUTO NEGATIVE (NEGATIVE); KETONE, URINE AUTO NEGATIVE (NEGATIVE); LEUKOCYTE ESTERASE, URINE AUTO 2+ (NEGATIVE); NITRITE, URINE AUTO NEGATIVE (NEGATIVE); PROTEIN, URINE AUTO 1+ mg/dL (NEGATIVE); RBC, URINE AUTO TNTC /HPF (0-3); SPECIFIC GRAVITY URINE AUTO 1.006 (1.002-1.035); SQUAMOUS EPITHELIAL CELL UR AU 0 /HPF (0-6); UROBILINOGEN, URINE AUTO 0.2 mg/dL (0.0-2.0); WBC, URINE AUTO 11 /HPF (0-3)
== END ==
LOC: M SFHCCLAY 07:58
PROVIDERS: ATTEND Nurse Practitioner Family
DX: R31.9 Hematuria, unspecified (principal)

== ENCOUNTER → 2023-11-21 | Outpatient (REF) | payer MEDICARE, BC ==
[2023-11-21 18:17] LABS: APPEARANCE, URINE CLOUDY (CLEAR); BACTERIA, URINE AUTO 1+ (NEGATIVE); BILIRUBIN, URINE AUTO NEGATIVE (NEGATIVE); BLOOD, URINE BLOOD 2+ (NEGATIVE); COLOR, URINE YELLOW (YELLOW); GLUCOSE, URINE (UA) AUTO NEGATIVE (NEGATIVE); KETONE, URINE AUTO TRACE mg/dL (NEGATIVE); LEUKOCYTE ESTERASE, URINE AUTO 3+ (NEGATIVE); MUCUS, URINE SMALL (NEGATIVE); NITRITE, URINE AUTO NEGATIVE (NEGATIVE); PROTEIN, URINE AUTO 2+ mg/dL (NEGATIVE); RBC, URINE AUTO 25 /HPF (0-3); SPECIFIC GRAVITY URINE AUTO 1.016 (1.002-1.035); SQUAMOUS EPITHELIAL CELL UR AU 1 /HPF (0-6); WBC, URINE AUTO TNTC /HPF (0-3)
== END ==
LOC: M SFHCCLAY 12:17
PROVIDERS: ATTEND Nurse Practitioner Family
DX: R31.9 Hematuria, unspecified (principal)

== ENCOUNTER → 2023-12-07 | Outpatient (REF) | payer MEDICARE, BC | LOC: M SFHCCLAY 16:49 | PROVIDERS: ATTEND Nurse Practitioner Family | DX: N30.01 Acute cystitis with hematuria (principal) ==

== ENCOUNTER → 2024-01-08 | Outpatient (CLI) | payer MEDICARE, BC ==
[~2024-01-08] MED LIST changes: +CIPROFLOXACIN 400 MG in IV 1 EA IV ONE; +ISOVUE-300 61% 100ML VIAL As Ordered ONE; +LIDOCAINE 1% MDV 20ML VIAL As Ordered ONE; +NS 1,000 ML IV SCH; +ONDANSETRON 4MG 2ML VIAL IV PRN; +PIPERACILLIN/TAZOBACTAM SOD 4.5 GM in D5W MINI-BAG PLUS 50 ML IV ONE; +UNRESOLVED CLARIFICATION ENTRY XX SCH
[2024-01-08 12:30] VITALS: TEMP 97.9
[2024-01-08 13:11] LABS: HEMATOCRIT 32.1 % (36.0-47.0); HEMOGLOBIN 10.2 g/dl (12.0-15.5); MEAN CORPUSCULAR HEMOGLOBIN 26.4 pg (27.0-33.0); MEAN CORPUSCULAR HGB CONC 31.8 g/dl (32.0-36.5); MEAN CORPUSCULAR VOLUME 82.9 fl (80.0-96.0); PLATELET COUNT, AUTOMATED 351 10^3/uL (150-450); RED BLOOD COUNT 3.87 10^6/uL (4.00-5.40)
[2024-01-08 13:25] LABS: INR 1.11
[2024-01-08] MEDS: PIPERACILLIN/TAZOBACTAM SOD 4.5 GM in D5W MINI-BAG PLUS 50 ML IV ONE (13:43)
[2024-01-08] MEDS: NS 1,000 ML IV SCH (13:43)
[2024-01-08 15:00] VITALS: BP 135/70; O2SAT 98
== END ==
LOC: M IRPRO 11:45
PROVIDERS: ATTEND Urology
DX: N28.89 Other specified disorders of kidney and ureter (principal); N13.30 Unspecified hydronephrosis
CPT/HCPCS: 36415; 50435; 85027; 85610; C1729; C1769; J2543; Q9967

== ENCOUNTER → 2024-01-30 | Outpatient (REF) | payer MEDICARE, BC ==
[~2024-01-30] MED LIST changes: -CIPROFLOXACIN 400 MG in IV 1 EA IV ONE; -ISOVUE-300 61% 100ML VIAL As Ordered ONE; -LIDOCAINE 1% MDV 20ML VIAL As Ordered ONE; -NS 1,000 ML IV SCH; -ONDANSETRON 4MG 2ML VIAL IV PRN; -PIPERACILLIN/TAZOBACTAM SOD 4.5 GM in D5W MINI-BAG PLUS 50 ML IV ONE; -UNRESOLVED CLARIFICATION ENTRY XX SCH
[2024-01-30 17:54] LABS: BASO # 0.1 10^3/uL (0.0-0.2); BASO % 0.6 % (0.0-1.0); EOS # 0.2 10^3/uL (0.0-0.5); EOS % 2.5 % (0.0-3.0); HEMATOCRIT 34.8 % (36.0-47.0); LYMPH # 0.9 10^3/uL (1.5-5.0); LYMPH % 11.2 % (24.0-44.0); MEAN CORPUSCULAR HEMOGLOBIN 26.3 pg (27.0-33.0); MEAN CORPUSCULAR HGB CONC 31.6 g/dl (32.0-36.5); MEAN CORPUSCULAR VOLUME 83.3 fl (80.0-96.0); MONO # 0.6 10^3/uL (0.0-0.8); NEUTROPHILS # 6.2 10^3/uL (1.5-8.5); NEUTROPHILS % 78.3 % (36.0-66.0); PLATELET COUNT, AUTOMATED 400 10^3/uL (150-450); RED BLOOD COUNT 4.18 10^6/uL (4.00-5.40); WHITE BLOOD COUNT 7.9 10^3/uL (4.0-10.0)
[2024-01-30 18:00] LABS: HEMOGLOBIN A1c 6.6 % (4.0-6.0)
[2024-01-30 18:26] LABS: TOTAL IRON BINDING CAPACITY 390 UG/DL (250-425)
[2024-01-30 18:28] LABS: IRON (FE) 17 UG/DL (50-170); PERCENT SATURATION 4.4 % (13.2-45.0)
[2024-01-30 18:30] LABS: ALBUMIN 3.9 G/DL (3.2-5.2); ALKALINE PHOSPHATASE 141 U/L (46-116); ALT/SGPT < 9 U/L (7.0-40); AST/SGOT 8 U/L (<34); BILIRUBIN,TOTAL 0.5 MG/DL (0.3-1.2); BLOOD UREA NITROGEN 13 MG/DL (9-23); CARBON DIOXIDE LEVEL 27 MMOL/L (20-31); CHLORIDE LEVEL 102 MMOL/L (98-107); CHOLESTEROL LEVEL 161 MG/DL (<200); CHOLESTEROL RISK RATIO 3.63 (<5); CREATININE FOR GFR 1.05 MG/DL (0.55-1.30); FERRITIN 10.1 NG/ML (7.3-270.7); FREE T4 1.12 NG/DL (0.89-1.76); GLOMERULAR FILTRATION RATE 52.8 (>32); GLUCOSE, FASTING 114 MG/DL (74-106); HDL CHOLESTEROL 44.3 MG/DL (>40); LDL CHOLESTEROL 76.1 MG/DL (<100); NON-HDL-C 116.7 MG/DL; POTASSIUM SERUM 3.7 MMOL/L (3.5-5.1); SODIUM LEVEL 137 MMOL/L (136-145); THYROID STIMULATING HORMONE 1.709 uIU/ML (0.55-4.78); TOTAL PROTEIN 7.2 G/DL (5.7-8.2); TRIGLYCERIDES LEVEL 203 MG/DL (<150)
== END ==
LOC: M SFHCCLAY 14:08
PROVIDERS: ATTEND Nurse Practitioner Family
DX: E16.2 Hypoglycemia, unspecified (principal); D50.9 Iron deficiency anemia, unspecified; R53.82 Chronic fatigue, unspecified; F41.9 Anxiety disorder, unspecified; C67.9 Malignant neoplasm of bladder, unspecified; I25.10 Atherosclerotic heart disease of native coronary artery without angina pectoris; I11.0 Hypertensive heart disease with heart failure; E11.9 Type 2 diabetes mellitus without complications; R41.3 Other amnesia

== ENCOUNTER → 2024-01-30 | Outpatient (REF) | payer MEDICARE, BC | LOC: M SFHCCLAY 16:35 | PROVIDERS: ATTEND Nurse Practitioner Family | DX: R41.3 Other amnesia (principal) ==

== ENCOUNTER → 2024-01-31 | Outpatient (REF) | payer MEDICARE, BC ==
[2024-01-31 19:20] LABS: APPEARANCE, URINE HAZY (CLEAR); BACTERIA, URINE AUTO NEGATIVE (NEGATIVE); BILIRUBIN, URINE AUTO NEGATIVE (NEGATIVE); BLOOD, URINE BLOOD 2+ (NEGATIVE); COLOR, URINE AMBER (YELLOW); GLUCOSE, URINE (UA) AUTO NEGATIVE (NEGATIVE); KETONE, URINE AUTO TRACE mg/dL (NEGATIVE); LEUKOCYTE ESTERASE, URINE AUTO 2+ (NEGATIVE); MUCUS, URINE SMALL (NEGATIVE); NITRITE, URINE AUTO NEGATIVE (NEGATIVE); PROTEIN, URINE AUTO 2+ mg/dL (NEGATIVE); RBC, URINE AUTO 20 /HPF (0-3); SPECIFIC GRAVITY URINE AUTO 1.025 (1.002-1.035); SQUAMOUS EPITHELIAL CELL UR AU 1 /HPF (0-6); UROBILINOGEN, URINE AUTO 0.2 mg/dL (0.0-2.0); WBC, URINE AUTO TNTC /HPF (0-3)
== END ==
LOC: M SFHCCLAY 16:29
PROVIDERS: ATTEND Nurse Practitioner Family
DX: R41.3 Other amnesia (principal)

== ENCOUNTER → 2024-02-12 | Outpatient (CLI) | payer MEDICARE, BC ==
[~2024-02-12] MED LIST changes: +GASTROGRAFIN SOLUTION 30ML As Ordered ONE; +ISOVUE-370 76% 100ML VIAL As Ordered ONE
== END ==
LOC: M RAD 09:45
PROVIDERS: ATTEND Nurse Practitioner Family
DX: R41.3 Other amnesia (principal)
CPT/HCPCS: 70450; Q9963; Q9967

== ENCOUNTER → 2024-02-12 | Outpatient (CLI) | payer MEDICARE, BC ==
[~2024-02-12] MED LIST changes: -GASTROGRAFIN SOLUTION 30ML As Ordered ONE; -ISOVUE-370 76% 100ML VIAL As Ordered ONE
== END ==
LOC: M RAD 09:43
PROVIDERS: ATTEND Urology
DX: C67.9 Malignant neoplasm of bladder, unspecified (principal); R41.3 Other amnesia; K86.2 Cyst of pancreas; K57.30 Diverticulosis of large intestine without perforation or abscess without bleeding; N32.3 Diverticulum of bladder; M47.817 Spondylosis without myelopathy or radiculopathy, lumbosacral region; R93.89 Abnormal findings on diagnostic imaging of other specified body structures; R91.8 Other nonspecific abnormal finding of lung field; J44.9 Chronic obstructive pulmonary disease, unspecified
CPT/HCPCS: 70450; 71260; 74177; Q9963; Q9967

== ENCOUNTER → 2024-02-15 | Outpatient (REF) | payer MEDICARE, BC ==
[2024-02-15 14:09] LABS: APPEARANCE, URINE MANUAL HAZY (CLEAR); COLOR, URINE MANUAL YELLOW (YELLOW)
[2024-02-15 14:10] LABS: BLOOD URINE MANUAL POSITIVE (NEGATIVE); GLUCOSE, URINE (UA) MANUAL NEGATIVE (NEGATIVE); LEUKOCYTE ESTERASE, URINE MAN POSITIVE (NEGATIVE); NITRITE, URINE MANUAL NEGATIVE (NEGATIVE)
[2024-02-15 14:11] LABS: PROTEIN, URINE MANUAL 2+ mg/dL (NEGATIVE)
== END ==
LOC: M SMT 12:35
PROVIDERS: ATTEND Urology
DX: N28.89 Other specified disorders of kidney and ureter (principal)

== ENCOUNTER 2024-02-20 14:31 | Outpatient (RCR) | payer MEDICARE, BC ==
[2023-02-08 10:20] VITALS: BP 142/87; O2SAT 96
[2023-02-08] MEDS: NS (Normal Saline) 0.9% 1,000 ML IV ONE (10:32)
[~2024-02-20] VITALS: Ht 157.5 cm; Wt 56.3 kg
[2024-02-20 14:38] VITALS: BP 141/86; O2SAT 99
[2024-04-12] MEDS ORDERED: OXYB5TAB14 PO (16:55)
[2024-04-13] MEDS ORDERED: FLUC10TA PO (08:04)
[2024-04-15] MEDS ORDERED: FOSF3PAC2 PO (08:50)
[2024-04-17] MEDS ORDERED: FLUC100T3 PO (14:51)
[2024-04-19] MEDS ORDERED: AZO-95TA3 PO (13:47)
[2024-04-19] MEDS ORDERED: MYRB25TA PO (13:51)
[2024-04-20] MEDS ORDERED: AZO-95TA3 PO (15:06)
[2024-04-20] MEDS ORDERED: MAGN400T2 PO (15:06)
[2024-04-20] MEDS ORDERED: OXYB5TAB14 PO (15:06)
[2024-04-24] MEDS ORDERED: ATIV1TAB10 PO (10:01)
[2024-04-24] MEDS ORDERED: HYOS125TA PO (10:01)
[2024-04-24] MEDS ORDERED: LEVO75TAB PO (10:01)
[2024-04-24] MEDS ORDERED: MORP1SOL5 PO (10:01)
== END 2024-05-05 | disposition expired ==
LOC: M ONCM 05-05
PROVIDERS: ATTEND General Practice
DX: R91.8 Other nonspecific abnormal finding of lung field (principal); C67.9 Malignant neoplasm of bladder, unspecified; I10 Essential (primary) hypertension; E11.9 Type 2 diabetes mellitus without complications; Z79.82 Long term (current) use of aspirin; Z79.899 Other long term (current) drug therapy
CPT/HCPCS: G0463; J1100

== ENCOUNTER → 2024-02-28 | Outpatient (POV) | payer MEDICARE, BC ==
[~2024-02-28] VITALS: Ht 157.5 cm; Wt 54.5 kg
[~2024-02-28] MED LIST changes: +ATIV1TAB10 PO; +AZO-95TA3 PO; +FLUC100T3 PO; +FLUC10TA PO; +FOSF3PAC2 PO; +HYOS125TA PO; +LEVO75TAB PO; +MORP1SOL5 PO; +MYRB25TA PO; +OXYB5TAB14 PO
[2024-02-28 14:00] VITALS: BP 136/65; O2SAT 99
== END ==
LOC: M IRPOV 13:25
PROVIDERS: ATTEND Radiology Diagnostic Radiology
DX: N13.5 Crossing vessel and stricture of ureter without hydronephrosis (principal); C67.9 Malignant neoplasm of bladder, unspecified; E78.5 Hyperlipidemia, unspecified; I13.0 Hypertensive heart and chronic kidney disease with heart failure and stage 1 through stage 4 chronic kidney disease, or unspecified chronic kidney disease; I25.10 Atherosclerotic heart disease of native coronary artery without angina pectoris; I50.32 Chronic diastolic (congestive) heart failure; J44.9 Chronic obstructive pulmonary disease, unspecified; N18.30 Chronic kidney disease, stage 3 unspecified; Z79.82 Long term (current) use of aspirin; Z79.899 Other long term (current) drug therapy; Z88.1 Allergy status to other antibiotic agents; Z88.5 Allergy status to narcotic agent; Z88.8 Allergy status to other drugs, medicaments and biological substances; Z96.0 Presence of urogenital implants; Z98.61 Coronary angioplasty status

== ENCOUNTER → 2024-03-18 | Outpatient (CLI) | payer MEDICARE, BC ==
[~2024-03-18] MED LIST changes: -ATIV1TAB10 PO; -AZO-95TA3 PO; -FLUC100T3 PO; -FLUC10TA PO; -FOSF3PAC2 PO; -HYOS125TA PO; -LEVO75TAB PO; -MORP1SOL5 PO; -MYRB25TA PO; -OXYB5TAB14 PO
== END ==
LOC: M PLARAD 08:01
PROVIDERS: ATTEND Internal Medicine Critical Care Medicine
DX: R91.8 Other nonspecific abnormal finding of lung field (principal)
CPT/HCPCS: 78815; A9552

== ENCOUNTER → 2024-04-10 | Outpatient (REF) | payer MEDICARE, OTHER ==
[~2024-04-10] MED LIST changes: +FLUC10TA PO; +FOSF3PAC2 PO; +OXYB5TAB14 PO
[2024-04-10 16:32] LABS: HEMATOCRIT 31.5 % (36.0-47.0); HEMOGLOBIN 9.7 g/dl (12.0-15.5); MEAN CORPUSCULAR HEMOGLOBIN 24.8 pg (27.0-33.0); MEAN CORPUSCULAR HGB CONC 30.8 g/dl (32.0-36.5); MEAN CORPUSCULAR VOLUME 80.6 fl (80.0-96.0); PLATELET COUNT, AUTOMATED 529 10^3/uL (150-450); RED BLOOD COUNT 3.91 10^6/uL (4.00-5.40); WHITE BLOOD COUNT 11.3 10^3/uL (4.0-10.0)
[2024-04-10 16:38] LABS: INR 1.04; PARTIAL THROMBOPLASTIN TIME 33.9 SECONDS (24.8-34.2); PROTHROMBIN TIME 13.9 SECONDS (12.5-14.5)
[2024-04-10 17:00] LABS: CREATININE FOR GFR 1.02 MG/DL (0.55-1.30); GLOMERULAR FILTRATION RATE 54.6 (>32); POTASSIUM SERUM 4.3 MMOL/L (3.5-5.1)
== END ==
LOC: M LABDRAWC 14:42
PROVIDERS: ATTEND Radiology Diagnostic Radiology
DX: C67.9 Malignant neoplasm of bladder, unspecified (principal)

== ENCOUNTER → 2024-04-12 | Outpatient (CLI) | payer MEDICARE, BC ==
[~2024-04-12] MED LIST changes: +ACETAMINOPHEN 325 MG TAB As Ordered ONE; +ISOVUE-300 61% 100ML VIAL As Ordered ONE; +LIDOCAINE 1% MDV 20ML VIAL As Ordered ONE; +LIDOCAINE 2% 100MG/5ML SDV (FOR ANES.) As Ordered ONE; +ONDANSETRON 4MG 2ML VIAL IV PRN; +cefTRIAXone SOD 1GM VIAL As Ordered ONE; +propofoL 200 MG/20 ML VIAL As Ordered ONE
[2024-04-12 12:45] VITALS: TEMP 99.4
[2024-04-12] MEDS: ACETAMINOPHEN 325 MG TAB PO PRN (15:23)
[2024-04-12] MEDS: NS 1,000 ML IV SCH (15:28)
[2024-04-12] MEDS: oxyBUTYnin 5 MG TAB PO ONE (16:30)
[2024-04-12 16:59] VITALS: BP 159/73; O2SAT 95
== END ==
LOC: M IRPRO 11:56
PROVIDERS: ATTEND Radiology Diagnostic Radiology
DX: N13.30 Unspecified hydronephrosis (principal); N28.89 Other specified disorders of kidney and ureter; C67.9 Malignant neoplasm of bladder, unspecified
CPT/HCPCS: 50434; C1769; C1894; C2625; J0696; Q9967

== ENCOUNTER → 2024-04-16 | Outpatient (REF) | payer MEDICARE, BC ==
[~2024-04-16] MED LIST changes: -ACETAMINOPHEN 325 MG TAB As Ordered ONE; +AZO-95TA3 PO; +FLUC100T3 PO; -ISOVUE-300 61% 100ML VIAL As Ordered ONE; -LIDOCAINE 1% MDV 20ML VIAL As Ordered ONE; -LIDOCAINE 2% 100MG/5ML SDV (FOR ANES.) As Ordered ONE; +MYRB25TA PO; -ONDANSETRON 4MG 2ML VIAL IV PRN; -cefTRIAXone SOD 1GM VIAL As Ordered ONE; -propofoL 200 MG/20 ML VIAL As Ordered ONE
[2024-04-16 17:42] LABS: APPEARANCE, URINE MANUAL CLOUDY (CLEAR); COLOR, URINE MANUAL ORANGE (YELLOW)
[2024-04-16 17:43] LABS: BILIRUBIN, URINE MANUAL OBSCURED (NEGATIVE); BLOOD URINE MANUAL POSITIVE (NEGATIVE); GLUCOSE, URINE (UA) MANUAL 1+(100 MG/DL) mg/dL (NEGATIVE); KETONE, URINE MANUAL OBSCURED mg/dL (NEGATIVE); LEUKOCYTE ESTERASE, URINE MAN POSITIVE (NEGATIVE); NITRITE, URINE MANUAL OBSCURED (NEGATIVE); PROTEIN, URINE MANUAL 2+ mg/dL (NEGATIVE); UROBILINOGEN, URINE MANUAL OBSCURED mg/dl (NORMAL)
[2024-04-16 17:46] LABS: BACTERIA, URINE SMALL AMOUNT; HYALINE CAST, URINE NONE SEEN /lpf (0-1); RBC, URINE TNTC /hpf (0-3); SQUAMOUS EPITHELIAL CELL URINE NONE SEEN /hpf (SMALL AMT); WBC, URINE 15-20 /hpf (0-3)
== END ==
LOC: M LAB REF 17:04
PROVIDERS: ATTEND Radiology Diagnostic Radiology
DX: N39.0 Urinary tract infection, site not specified (principal)

== ENCOUNTER → 2024-04-19 | Outpatient (POV) | payer MEDICARE, BC ==
[~2024-04-19] MED LIST changes: +ATIV1TAB10 PO; +HYOS125TA PO; +LEVO75TAB PO; +MORP1SOL5 PO; +cefTRIAXone SOD 1GM VIAL As Ordered ONE
== END ==
LOC: M IRPOV 14:00
PROVIDERS: ATTEND Radiology Diagnostic Radiology
DX: N13.9 Obstructive and reflux uropathy, unspecified (principal); N32.89 Other specified disorders of bladder; R30.0 Dysuria; R31.9 Hematuria, unspecified; Z96.0 Presence of urogenital implants

== ENCOUNTER 2024-04-20 11:27 | Inpatient (IN) | payer MEDICARE, BC ==
[~2024-04-20] VITALS: Ht 157.5 cm; Wt 53.3 kg
[~2024-04-20 11:27] MED LIST changes: -ATIV1TAB10 PO; -HYOS125TA PO; -LEVO75TAB PO; -MORP1SOL5 PO; -cefTRIAXone SOD 1GM VIAL As Ordered ONE
[2024-04-20] MEDS: NS 500 ML IV ONE (12:05)
[2024-04-20 12:09] LABS: BASO # 0.1 10^3/uL (0.0-0.2); BASO % 0.5 % (0.0-1.0); EOS # 0.1 10^3/uL (0.0-0.5); EOS % 1.2 % (0.0-3.0); HEMATOCRIT 27.4 % (36.0-47.0); HEMOGLOBIN 8.6 g/dl (12.0-15.5); LYMPH # 0.8 10^3/uL (1.5-5.0); LYMPH % 6.8 % (24.0-44.0); MEAN CORPUSCULAR HEMOGLOBIN 24.9 pg (27.0-33.0); MEAN CORPUSCULAR HGB CONC 31.4 g/dl (32.0-36.5); MEAN CORPUSCULAR VOLUME 79.4 fl (80.0-96.0); MONO # 0.6 10^3/uL (0.0-0.8); MONO % 5.2 % (2.0-8.0); NEUTROPHILS # 9.5 10^3/uL (1.5-8.5); NEUTROPHILS % 85.8 % (36.0-66.0); PLATELET COUNT, AUTOMATED 599 10^3/uL (150-450); RED BLOOD COUNT 3.45 10^6/uL (4.00-5.40)
[2024-04-20] MEDS: ONDANSETRON 4MG 2ML VIAL IV ONE (12:10)
[2024-04-20] MEDS ORDERED: ISOVUE-370 76% 100ML VIAL As Ordered ONE (12:10)
[2024-04-20] MEDS ORDERED: fentaNYL 100 MCG/2 ML INJECTION As Ordered ONE (12:12)
[2024-04-20] MEDS: fentaNYL 100 MCG/2 ML INJECTION IV PRN (12:15)
[2024-04-20] MEDS: methylPREDNISolone 125MG 2ML VIAL IV ONE (12:15)
[2024-04-20] MEDS: ALBUTEROL SULFATE 2.5MG/0.5ML INH NEB SOLN INH ONE (12:17)
[2024-04-20] MEDS: IPRATROPIUM 0.5MG/ALBUTEROL 2.5MG INH SOL UD 3ML (DUONEB) NEB ONE (12:18)
[2024-04-20] MEDS: LIDOCAINE 2% 5ML JELLY UROJET TOP ONE (12:21)
[2024-04-20 13:00] LABS: LIPASE 25 U/L (12-53)
[2024-04-20 13:01] LABS: ALBUMIN 2.9 G/DL (3.2-5.2); ALKALINE PHOSPHATASE 149 U/L (35-104); ALT/SGPT < 9 U/L (7.0-40); AMYLASE 22 U/L (30-118); AST/SGOT < 8 U/L (<34); BILIRUBIN,DIRECT 0.2 MG/DL (<0.4); BILIRUBIN,TOTAL 0.4 MG/DL (0.3-1.2); BLOOD UREA NITROGEN 16 MG/DL (9-23); CALCIUM LEVEL 9.9 MG/DL (8.3-10.6); CARBON DIOXIDE LEVEL 20 MMOL/L (20-31); CHLORIDE LEVEL 103 MMOL/L (98-107); GLOMERULAR FILTRATION RATE 55.8 (>32); GLUCOSE, FASTING 116 MG/DL (74-106); POTASSIUM SERUM 4.5 MMOL/L (3.5-5.1); SODIUM LEVEL 134 MMOL/L (136-145); TOTAL PROTEIN 6.9 G/DL (5.7-8.2)
[2024-04-20] MEDS: cefTRIAXone SOD 2 GM in DEXTROSE 5% (D5W) ADV/MINI-BAG 50 ML IV ONE (13:56)
[2024-04-20 14:28] LABS: ABG HCO3 18.1 MMOL/L (22.0-26.0); ABG PARTIAL PRESSURE CO2 39.5 mmHg (35.0-45.0); ABG TOTAL CO2 19.3 MMOL/L (23.0-31.0); ABG pH (ARTERIAL) 7.279 UNITS (7.350-7.450)
[2024-04-20] MEDS: DOXYCYCLINE HYCLATE 100 MG in DEXTROSE 5% (D5W) MINI-BAG PLU 100 ML IV ONE (14:36)
[2024-04-20] MEDS ORDERED: OXYB5TAB14 PO (15:06)
[2024-04-20] MEDS ORDERED: MAGN400T2 PO (15:06)
[2024-04-20] MEDS ORDERED: AZO-95TA3 PO (15:06)
[2024-04-20] MEDS ORDERED: HOME MED LIST COMPLETE! XX SCH (15:10)
[2024-04-20] MEDS: LR 1,000 ML IV ONE (15:30)
[2024-04-20] MEDS: KETOROLAC 30 MG/ML 1ML VIAL IV PRN (15:49)
[2024-04-20 16:00] VITALS: BP 139/77; TEMP 98.2; O2SAT 93
[2024-04-20 16:00] LABS: PROCALCITONIN 2.12 ng/ml
[2024-04-20] MEDS: PIPERACILLIN/TAZOBACTAM SOD 3.375 GM in DEXTROSE 5% (D5W) ADV/MINI-BAG 50 ML IV SCH (17:18)
[2024-04-20] MEDS: HYDROMORPHONE HCL 0.5 MG/ 0.5 ML SYRINGE IV PRN (18:17)
[2024-04-20] MEDS: ALBUTEROL SULFATE 2.5MG/0.5ML INH NEB SOLN NEB SCH (19:17)
[2024-04-20] MEDS: SODIUM CHLORIDE HYPERTONIC 3% 4ML NEB SOL INH SCH (19:17)
[2024-04-20] MEDS: SYMBICORT 80/4.5MCG INHALER 6GM INH SCH (19:17)
[2024-04-20 19:34] VITALS: BP 132/87; TEMP 98.2; O2SAT 96
[2024-04-20] MEDS: ATORVASTATIN 10 MG TAB PO SCH (20:15)
[2024-04-20] MEDS: DOXYCYCLINE HYCLATE 100MG TABLET PO SCH (20:15)
[2024-04-20] MEDS: oxyBUTYnin 5 MG TAB PO SCH (20:15)
[2024-04-21 00:15] VITALS: BP 120/65; TEMP 98.1; O2SAT 93
[2024-04-21 03:38] VITALS: BP 117/76; TEMP 98.4; O2SAT 95
[2024-04-21] MEDS: HYDROMORPHONE HCL 0.5 MG/ 0.5 ML SYRINGE IV ONE (04:37)
[2024-04-21] MEDS: TAMSULOSIN 0.4 MG CAP PO ONE (05:22)
[2024-04-21] MEDS: NS 1,000 ML IV ONE (05:22)
[2024-04-21 05:31] LABS: HEMATOCRIT 25.8 % (36.0-47.0); MEAN CORPUSCULAR HEMOGLOBIN 24.8 pg (27.0-33.0); MEAN CORPUSCULAR VOLUME 79.9 fl (80.0-96.0); PLATELET COUNT, AUTOMATED 579 10^3/uL (150-450); RED BLOOD COUNT 3.23 10^6/uL (4.00-5.40); WHITE BLOOD COUNT 12.5 10^3/uL (4.0-10.0)
[2024-04-21 06:10] LABS: CREATININE FOR GFR 1.51 MG/DL (0.55-1.30); GLOMERULAR FILTRATION RATE 34.7 (>32); POTASSIUM SERUM 5.1 MMOL/L (3.5-5.1)
[2024-04-21 08:30] VITALS: BP 129/78; TEMP 98.5; O2SAT 93
[2024-04-21] MEDS ORDERED: HYDROMORPHONE HCL 0.5 MG/ 0.5 ML SYRINGE IV PRN (08:40)
[2024-04-21] MEDS ORDERED: ASPIRIN 81MG ENTERIC TABLET PO SCH (09:00)
[2024-04-21] MEDS: NS 1,000 ML IV SCH (09:46)
[2024-04-21 12:13] VITALS: BP 147/66; TEMP 99.1; O2SAT 100
[2024-04-21] MEDS: ONDANSETRON 4MG 2ML VIAL IV PRN (12:17)
[2024-04-21] MEDS: HYDROMORPHONE HCL 0.5 MG/ 0.5 ML SYRINGE IV PRN (12:31)
[2024-04-21 13:54] LABS: INR 1.1; PROTHROMBIN TIME 14.5 SECONDS (12.5-14.5)
[2024-04-21] MEDS ORDERED: MORPHINE 4 MG/ML 1ML VIAL IV PRN (16:40)
[2024-04-21] MEDS ORDERED: LORazepam 2 MG/ML 1ML VIAL IV PRN (16:40)
[2024-04-21] MEDS ORDERED: HYOSCYAMINE SULFATE 0.125 MG SUBL TABLET PO PRN (16:40)
[2024-04-21] MEDS: LevoFLOXacin 750 MG TABLET PO SCH (17:30)
[2024-04-21] MEDS: MORPHINE 10MG/0.5ML ORAL CONCENTRATE SOLUTION U/D SL PRN (17:31)
[2024-04-21] MEDS: IPRATROPIUM 0.5MG/ALBUTEROL 2.5MG INH SOL UD 3ML (DUONEB) NEB SCH (19:18)
[2024-04-21] MEDS ORDERED: methylPREDNISolone 125MG 2ML VIAL IV ONE (22:50)
[2024-04-22] MEDS ORDERED: LIDOCAINE 1% MDV 20ML VIAL As Ordered ONE (07:31)
[2024-04-22] MEDS ORDERED: ISOVUE-300 61% 100ML VIAL As Ordered ONE (07:33)
[2024-04-22 08:08] VITALS: TEMP 98.2
[2024-04-22] MEDS: cefTRIAXone SOD 1 GM in DEXTROSE 5% (D5W) ADV/MINI-BAG 50 ML IV ONE (08:09)
[2024-04-22] MEDS: NS 1,000 ML IV SCH ×2 (08:10→09:55)
[2024-04-22] MEDS ORDERED: MIDAZOLAM INJ 2MG/2ML VIAL As Ordered ONE (08:22)
[2024-04-22 09:45] VITALS: BP 125/62; O2SAT 98
[2024-04-24] MEDS: MORPHINE 10MG/0.5ML ORAL CONCENTRATE SOLUTION U/D SL PRN ×2 (06:45→10:55)
[2024-04-24] MEDS: LORazepam 1 MG TAB PO PRN (08:56)
[2024-04-24] MEDS: SCOPOLAMINE 1MG TRANSDERMAL PATCH TOP PRN (09:28)
[2024-04-24] MEDS ORDERED: LEVO75TAB PO (10:01)
[2024-04-24] MEDS ORDERED: MORP1SOL5 PO (10:01)
[2024-04-24] MEDS ORDERED: HYOS125TA PO (10:01)
[2024-04-24] MEDS ORDERED: ATIV1TAB10 PO (10:01)
[2024-04-26 23:27] LABS: URINE STREP PNEUMONIAE ANTIGEN NOT DETECTED (NOT DETECT)
== END 2024-04-24 12:22 | disposition hospice, home (50) | DRG 693 ==
LOC: EDBD 11:27 → M ED 11:27 → M ED INP 14:52 → M PCU 15:56 → M MS4PR 04-22 01:56
PROVIDERS: ADMIT Internal Medicine; ATTEND Internal Medicine
PROC: 0T9030Z Drainage of Right Kidney with Drainage Device, Percutaneous Approach (ICD-10-PCS; principal; 2024-04-22 08:00)
DX: N13.8 Other obstructive and reflux uropathy (principal); J18.9 Pneumonia, unspecified organism; I50.32 Chronic diastolic (congestive) heart failure; I13.0 Hypertensive heart and chronic kidney disease with heart failure and stage 1 through stage 4 chronic kidney disease, or unspecified chronic kidney disease; C79.71 Secondary malignant neoplasm of right adrenal gland; C79.72 Secondary malignant neoplasm of left adrenal gland; J96.11 Chronic respiratory failure with hypoxia; N39.0 Urinary tract infection, site not specified; D62 Acute posthemorrhagic anemia; J44.9 Chronic obstructive pulmonary disease, unspecified; C67.5 Malignant neoplasm of bladder neck; R91.8 Other nonspecific abnormal finding of lung field; I25.10 Atherosclerotic heart disease of native coronary artery without angina pectoris; Z51.5 Encounter for palliative care; Z66 Do not resuscitate; R31.9 Hematuria, unspecified; F17.200 Nicotine dependence, unspecified, uncomplicated; N18.30 Chronic kidney disease, stage 3 unspecified; Z99.81 Dependence on supplemental oxygen; Z79.82 Long term (current) use of aspirin; Z79.899 Other long term (current) drug therapy; Z88.1 Allergy status to other antibiotic agents; Z88.5 Allergy status to narcotic agent; Z88.8 Allergy status to other drugs, medicaments and biological substances; Z88.2 Allergy status to sulfonamides